=== PATIENT | female | born 1970 | race Caucasian/White ===

== ENCOUNTER 2017-02-17 19:15 | Emergency (ER) | payer OTHER ==
--- NOTE | 2017-02-17 19:40 | ERPHSYRPT ---
- History of Present Illness Time Seen by Provider: 02/17/17 19:27 Historian: patient Exam Limitations: no limitations Physician History: 46 y/o female with history of HTN and DM comes to the ER with complaints of substernal chest pain that started 4 days ago. About 2 weeks ago, patient was diagnosed with bronchitis and was treated with antibiotics and steroids. Pt says that she had a very severe cough. Pt describes the pain as tightness, constant, worse with inspiration, as high as a 9/10 with dizziness, shortness of breath and palpitations. Pt has never had a stress test in the past. Pt denies any fever, chills, but still has weakness and a productive cough. Pt does report having similar symptoms in the past and was diagnosed with pneumonia. Timing/Duration: day(s) (4 days) Activities at Onset: emotional stress Quality: tightness Location: substernal Chest Pain Radiation: no radiation Severity of Pain-Max: severe Severity of Pain-Current: severe Modifying Factors: Improves With: nothing Associated Symptoms: palpitations, shortness of breath, weakness, dizziness Prior Chest Pain/Cardiac Workup: no prior chest pain Nitro Today/Relief: no nitro taken today Aspirin Treatment Today: no aspirin today Allergies/Adverse Reactions: No Known Drug Allergies Allergy (Unverified 02/17/17 19:48) Home Medications: Hydrochlorothiazide 12.5 mg PO DAILY 02/17/17 [History] Lisinopril [Zestril] 10 mg PO DAILY 02/17/17 [History] Metformin HCl [Metformin HCl ER] 750 mg PO BID 02/17/17 [History] Sertraline HCl [Zoloft] 50 mg PO DAILY 02/17/17 [History] - Review of Systems Constitutional: No Fever, No Chills Eyes: No Symptoms Ears, Nose, & Throat: No Symptoms Respiratory: Cough, Dyspnea on Exertion (DYE), No Dyspnea Cardiac: Chest Pain, Palpitations, No Edema, No Syncope Abdominal/Gastrointestinal: No Abdominal Pain, No Nausea, No Vomiting, No Diarrhea Genitourinary Symptoms: No Dysuria Musculoskeletal: No Back Pain, No Neck Pain Skin: No Rash Neurological: Dizziness, No Focal Weakness, No Sensory Changes Psychological: No Symptoms Endocrine: No Symptoms All Other Systems: Reviewed and Negative - Nursing Vital Signs Nursing Vital Signs: Initial Vital Signs Respiratory Rate 22 02/17/17 19:29 Blood Pressure 155/99 02/17/17 19:29 O2 Sat by Pulse Oximetry 97 02/17/17 19:29 Pain Scale Pain Intensity 7 - Physical Exam General Appearance: no apparent distress, alert Eye Exam: PERRL/EOMI, eyes nml inspection Ears, Nose, Throat Exam: normal ENT inspection, moist mucous membranes Neck Exam: normal inspection, non-tender, supple, full range of motion Respiratory Exam: normal breath sounds, chest tenderness, lungs clear, No respiratory distress Cardiovascular Exam: regular rate/rhythm, normal heart sounds Gastrointestinal/Abdomen Exam: soft, normal bowel sounds, No tenderness, No mass Back Exam: normal inspection, No CVA tenderness, No vertebral tenderness Extremity Exam: normal inspection, normal range of motion Neurologic Exam: alert, oriented x 3, cooperative, normal mood/affect, sensation nml, No motor deficits Skin Exam: normal color, warm, dry - Course Nursing assessment & vital signs reviewed: Yes EKG Interpreted by Me: RATE, Sinus Tach (HR 117), NORMAL AXIS, NORMAL INTERVALS , NORMAL QRS Ordered Tests: Active Orders 24 hr Category Date Time Status It Program Manager STAT Care 02/17/17 19:44 Active EKG-ER Only STAT Care 02/17/17 19:43 Active IV Insertion STAT Care 02/17/17 19:43 Active CHEST 2 VIEWS (PA AND LAT) Stat Exams 02/17/17 19:43 Taken BLOOD CULTURE Stat Lab 02/17/17 20:00 Received CBC W DIFF Stat Lab 02/17/17 19:50 Completed CK-Creatinine Phosphokinase Stat Lab 02/17/17 19:50 Completed CMP Stat Lab 02/17/17 19:50 Completed D-DIMER QUANTITATION Stat Lab 02/17/17 19:50 Completed HCG QUALITATIVE,SERUM Stat Lab 02/17/17 19:50 Completed NT PRO BNP Stat Lab 02/17/17 19:50 Completed TROPONIN Q3H Lab 02/17/17 19:50 Completed TROPONIN Q3H Lab 02/17/17 22:45 Ordered TROPONIN Q3H Lab 02/18/17 01:45 Ordered TROPONIN Q3H Lab 02/18/17 04:45 Ordered TROPONIN Q3H Lab 02/18/17 07:45 Ordered Medication Summary Discontinued Medications Generic Name Dose Route Start Last Admin Trade Name Freq PRN Reason Stop Dose Admin Ketorolac Tromethamine 30 mg 02/17/17 19:44 02/17/17 19:58 Toradol 30 Mg Injection IV 02/17/17 19:45 30 mg STAT ONE Administration Ketorolac Tromethamine Confirm 02/17/17 19:56 Toradol 30 Mg Injection Administered 02/17/17 19:57 Dose 30 mg .ROUTE .STK-MED ONE Lab/Rad Data: Laboratory Result Diagrams 02/17/17 19:50 02/17/17 19:50 Laboratory Results 02/17/17 02/17/17 02/17/17 Range/Units 19:50 19:50 19:50 WBC (4.0-10.5) K/mm3 RBC (4.1-5.4) M/mm3 Hgb (12.0-16.0) gm/dl Hct (35-47) % MCV (78-100) fl MCH (26-32) pg MCHC (32-36) g/dl RDW (11.5-14.0) % Plt Count (150-450) K/mm3 MPV (6-9.5) fl Gran % (36.0-66.0) % Lymphocytes % (24.0-44.0) % Monocytes % (0.0-12.0) % Eosinophils % (0.00-5.0) % Basophils % (0.0-0.4) % Basophils # (0-0.4) D-Dimer 236 (0-500) ng/mL Sodium (136-145) mEq/L Potassium (3.5-5.1) mEq/L Chloride (98-107) mEq/L Carbon Dioxide (21-32) mEq/L Anion Gap (5-15) MEQ/L BUN (9-20) mg/dL Creatinine (0.55-1.30) mg/dl Estimated GFR ML/MIN Glucose (70-110) MG/DL Calcium (8.5-10.1) mg/dL Total Bilirubin (0.2-1.0) mg/dL AST (15-37) U/L ALT (12-78) U/L Alkaline Phosphatase (46-116) U/L Creatine Kinase (26-192) U/L Troponin I < 0.017 (0.000-0.056) ng/ml NT-Pro-B Natriuret Pep (0-125) pg/ml Serum Total Protein (6.4-8.2) gm/dL Albumin (3.4-5.0) g/dL Serum , Qual NEGATIVE (Negative) 02/17/17 02/17/17 Range/Units 19:50 19:50 WBC 13.9 H (4.0-10.5) K/mm3 RBC 4.81 (4.1-5.4) M/mm3 Hgb 14.3 (12.0-16.0) gm/dl Hct 43.4 (35-47) % MCV 90.2 (78-100) fl MCH 29.7 (26-32) pg MCHC 32.9 (32-36) g/dl RDW 14.6 H (11.5-14.0) % Plt Count 435 (150-450) K/mm3 MPV 11.4 H (6-9.5) fl Gran % 63.9 (36.0-66.0) % Lymphocytes % 29.4 (24.0-44.0) % Monocytes % 5.8 (0.0-12.0) % Eosinophils % 0.6 (0.00-5.0) % Basophils % 0.3 (0.0-0.4) % Basophils # 0.04 (0-0.4) D-Dimer (0-500) ng/mL Sodium 140 (136-145) mEq/L Potassium 3.8 (3.5-5.1) mEq/L Chloride 102 (98-107) mEq/L Carbon Dioxide 21.4 (21-32) mEq/L Anion Gap 20.5 H (5-15) MEQ/L BUN 22 H (9-20) mg/dL Creatinine 0.90 (0.55-1.30) mg/dl Estimated GFR > 60 ML/MIN Glucose 217 H (70-110) MG/DL Calcium 10.0 (8.5-10.1) mg/dL Total Bilirubin 0.30 (0.2-1.0) mg/dL AST 65 H (15-37) U/L ALT 111 H (12-78) U/L Alkaline Phosphatase 120 H (46-116) U/L Creatine Kinase 41 (26-192) U/L Troponin I (0.000-0.056) ng/ml NT-Pro-B Natriuret Pep 17 (0-125) pg/ml Serum Total Protein 8.2 (6.4-8.2) gm/dL Albumin 3.9 (3.4-5.0) g/dL Serum , Qual (Negative) - Progress Progress: unchanged Air Movement: good Progress Note: 02/17/17 21:18 Pt still having chest pain after receiving toradol. Pt will be given a dose of norco prior to being discharged. The cardiac workup, including, troponin an dEKG are within normal limits. D-dimer is unremarkable and the CXR does not show any infiltrate. Pt will be d/c home with a diagnosis of costochondritis and will be given a script for toradol and short course of norco. - Departure Time of Disposition: 21:20 Departure Disposition: Home Clinical Impression: Costochondritis Condition: Stable Critical Care Time: No Instructions: Costochondritis Additional Instructions: Follow up with your primary care doctor for any additional chest pain issues. Forms: Work/School Release Form Prescriptions: Hydrocodone Bit/Acetaminophen [Cromwell 5-325 Tablet] 1 each PO QID PRN #8 tablet PRN Reason: Severe Pain Ketorolac Tromethamine [Toradol] 10 mg PO QID PRN #15 tablet PRN Reason: Pain
[2017-02-17] MEDS ORDERED: TORAdol 30 mg Injection IV ONE (19:44)
[2017-02-17] MEDS ORDERED: TORAdol 30 mg Injection ONE (19:56)
[2017-02-17 20:12] LABS: BASOPHIL % 0.3 % (0.0-0.4); Eosinophil % 0.6 % (0.00-5.0); Granulocytes % 63.9 % (36.0-66.0); Lymphocytes % 29.4 % (24.0-44.0); Mean Cell Volume 90.2 fl (78-100); Mean Corpuscular Hemoglobin 29.7 pg (26-32); Mean Platelet Volume 11.4 fl (6-9.5); Monocytes % 5.8 % (0.0-12.0); Platelet Count 435 K/mm3 (150-450); Red Blood Count 4.81 M/mm3 (4.1-5.4); Red Cell Distribution Width 14.6 % (11.5-14.0); White Blood Count 13.9 K/mm3 (4.0-10.5)
[2017-02-17 21:01] LABS: ALBUMIN 3.9 g/dL (3.4-5.0); ALKALINE PHOSPHATASE 120 U/L (46-116); ANION GAP 20.5 MEQ/L (5-15); BLOOD UREA NITROGEN 22 mg/dL (9-20); CHLORIDE 102 mEq/L (98-107); Carbon Dioxide 21.4 mEq/L (21-32); Glucose 217 MG/DL (70-110); Potassium 3.8 mEq/L (3.5-5.1); SGOT/AST 65 U/L (15-37); SGPT/ALT 111 U/L (12-78); SODIUM 140 mEq/L (136-145); Total Protein 8.2 gm/dL (6.4-8.2)
[2017-02-17] MEDS ORDERED: NORCO 5/325 MG PO ONE (21:17)
[2017-02-17] MEDS ORDERED: NORCO 5/325 MG ONE (21:22)
[2017-02-17 21:58] VITALS: BP 130/70; PULSE 88; O2SAT 98
--- NOTE | 2017-02-18 11:06 | XRAY ---
Exam: Two-view chest from 02/17/2017. Comparison: Two-view chest from 02/19/2007. Indication: Weakness, chest pain, shortness of breath, high blood pressure 4 days, no history of prior surgery. Findings: PA and lateral upright chest films were obtained. The heart size and contour are normal. Inflation of the lungs is average. The patrice and mediastinal structures appear unremarkable. EKG leads are noted in place. The lungs reveal no air space infiltrates, vascular congestion, pneumothorax, or pleural effusion. Prior minimal air space infiltrate within the right midlung field on 02/19/2007 is no longer seen. Small anterior osteophytes are seen within the lower thoracic spine. Incidentally, there are multiple tiny sclerotic lesions within both shoulder girdles. In retrospect, this is unchanged from 02/19/2007 as well as on a CT of the abdomen and pelvis, the latter which was grossly abnormal within the pelvis, on 01/29/2009. 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 It is a rare inherited benign condition. It is inherited as an autosomal dominant disorder. The condition is asymptomatic and does not degenerate into malignancy. Bone strength is normal. Impression: 1. No infiltrates, pleural effusion, or other acute cardiopulmonary disease is seen. 2. Osteopoikilosis. See above.
== END 2017-02-17 21:48 | disposition home or self-care (01) ==
LOC: ED 19:15
DX: M94.0 Chondrocostal junction syndrome [Tietze] (principal); R07.89 Other chest pain; R00.2 Palpitations; R42 Dizziness and giddiness; I10 Essential (primary) hypertension; E11.9 Type 2 diabetes mellitus without complications; Z79.84 Long term (current) use of oral hypoglycemic drugs; Z79.899 Other long term (current) drug therapy
CPT/HCPCS: 36000; 36415; 71020; 80053; 82550; 83880; 84484; 84703; 85025; 85379; 87040; 93005; 93041; 96374; 99283; J1885; A9270-GY

== ENCOUNTER 2017-02-19 08:06 | Emergency (ER) | payer OTHER ==
[2017-02-19] MEDS ORDERED: Nitrostat 0.4 MG (ED) SL ONE ×2 (08:25→08:36)
[2017-02-19] MEDS ORDERED: PROTONIX 40 MG IV IV ONE ×2 (08:28→08:36)
--- NOTE | 2017-02-19 08:38 | ERPHSYRPT ---
- History of Present Illness Time Seen by Provider: 02/19/17 08:11 Historian: patient Exam Limitations: no limitations (left mild chest pain tightness off and on since seen here on Thursday nonrad, pt took asa today, no fever, no NV, no hx stress testing, +fam hx CAD, mother cabg at 65yo) Patient Subjective Stated Complaint: pt here for pressure to left side of chest , nonradiating, no sob, no nuasea,fever,cough, was seen thursday for same thing, and sent home on pain meds Triage Nursing Assessment: pt walked in alert, resp easy, chest clear, skin w/d pink ,no edema noted, moves all ext well, Physician History: recoreded in pt subjective complaint Timing/Duration: day(s) Activities at Onset: none Quality: tightness Location: substernal Chest Pain Radiation: no radiation Severity of Pain-Max: mild Severity of Pain-Current: mild Modifying Factors: Improves With: nothing Associated Symptoms: No vomiting Prior Chest Pain/Cardiac Workup: no prior cardiac workup Aspirin Treatment Today: provided at home Allergies/Adverse Reactions: No Known Drug Allergies Allergy (Verified 02/19/17 08:19) Home Medications: Hydrochlorothiazide 12.5 mg PO DAILY 02/17/17 [History] Lisinopril [Zestril] 10 mg PO DAILY 02/17/17 [History] Metformin HCl [Metformin HCl ER] 750 mg PO BID 02/17/17 [History] Sertraline HCl [Zoloft] 50 mg PO DAILY 02/17/17 [History] Aspirin 81 gm Chew [Baby Aspirin 81 mg Chew] 81 mg DAILY 02/19/17 [History ] Lactobacillus Acidophilus [Acidophilus Lactobacilli] 1 ea DAILY 02/19/17 [ History] Loratadine 10 mg [Claritin 10 mg] 10 mg DAILY 02/19/17 [History] Omeprazole 20 MG [Prilosec 20 mg] 20 mg DAILY 02/19/17 [History] Pravastatin Sodium [Pravachol] 10 mg DAILY 02/19/17 [History] Sumatriptan Succinate [Imitrex] 50 mg .ROUTE PRN 02/19/17 [History] Vitamin E 400 Units [Vitamin E 400 UNIT SOFTGEL] 400 units DAILY 02/19/17 [History] Hx Tetanus, Diphtheria Vaccination/Date Given: Yes Hx Influenza Vaccination/Date Given: Yes Hx Pneumococcal Vaccination/Date Given: No Immunizations Up to Date: Yes - Review of Systems Constitutional: No Fever Eyes: No Symptoms Ears, Nose, & Throat: No Symptoms Respiratory: Dyspnea Cardiac: Chest Pain Abdominal/Gastrointestinal: No Symptoms Musculoskeletal: No Symptoms Skin: No Symptoms Neurological: Dizziness Psychological: No Symptoms - Past Medical History Pertinent Past Medical History: Yes Cardiac History: No Pertinent History, Hypertension Respiratory History: Bronchitis, Pneumonia Endocrine Medical History: Diabetes Type II Musculoskeletal History: No Pertinent History GI Medical History: GERD, Irritable Bowel, Polyps Psycho-Social History: No Pertinent History Female Reproductive Disorders: No Pertinent History - Past Surgical History Past Surgical History: Yes Gastrointestinal: Appendectomy, Cholecystectomy Female Surgical History: Hysterectomy - Social History Smoking Status: Never smoker Exposure to second hand smoke: No Drug Use: none Patient Lives Alone: No - Female History Hx Last Menstrual Period: hyster - Nursing Vital Signs Nursing Vital Signs: Initial Vital Signs Temperature 97.7 F 02/19/17 08:13 Pulse Rate 78 02/19/17 08:13 Respiratory Rate 16 02/19/17 08:13 Blood Pressure 134/88 02/19/17 08:13 O2 Sat by Pulse Oximetry 98 02/19/17 08:13 Pain Scale Pain Intensity 3 - Physical Exam General Appearance: no apparent distress Eye Exam: PERRL/EOMI Ears, Nose, Throat Exam: normal ENT inspection Neck Exam: normal inspection Respiratory Exam: normal breath sounds Cardiovascular Exam: regular rate/rhythm Gastrointestinal/Abdomen Exam: soft, No tenderness Extremity Exam: normal inspection Neurologic Exam: alert, oriented x 3, cooperative, normal mood/affect Skin Exam: normal color, warm, dry SpO2 Interpretation: normal SpO2: 98 Oxygen Delivery: Room Air - Course EKG Interpreted by Me: RATE (76), Sinus Rhythm, Other (no stemi) - Radiology Exams Chest X-ray Interpretation: Discussed w/ radiologist (no acute process) Ordered Tests: Active Orders 24 hr Category Date Time Status EKG-ER Only STAT Care 02/19/17 08:25 Active IV Insertion STAT Care 02/19/17 08:25 Active CHEST 1 VIEW (PORTABLE) Stat Exams 02/19/17 08:26 Completed CBC W DIFF Stat Lab 02/19/17 08:45 Completed CK-Creatinine Phosphokinase Routine Lab 02/19/17 08:30 Completed CMP Routine Lab 02/19/17 08:30 Completed D-DIMER QUANTITATION Stat Lab 02/19/17 08:45 Completed TROPONIN Q3H Lab 02/19/17 08:30 Completed TROPONIN Q3H Lab 02/19/17 11:30 Completed TROPONIN Q3H Lab 02/19/17 14:30 Ordered TROPONIN Q3H Lab 02/19/17 17:30 Ordered TROPONIN Q3H Lab 02/19/17 20:30 Ordered Medication Summary Discontinued Medications Generic Name Dose Route Start Last Admin Trade Name Eddie PRN Reason Stop Dose Admin Ketorolac Tromethamine 30 mg 02/19/17 09:49 02/19/17 09:52 Toradol 30 Mg Injection IV 02/19/17 09:50 30 mg STAT ONE Administration Ketorolac Tromethamine Confirm 02/19/17 09:52 Toradol 30 Mg Injection Administered 02/19/17 09:53 Dose 30 mg .ROUTE .STK-MED ONE Morphine Sulfate 2 mg 02/19/17 09:12 02/19/17 09:17 Morphine Sulfate 2 Mg Inj IV 02/19/17 09:13 2 mg STAT ONE Administration Morphine Sulfate Confirm 02/19/17 09:16 Morphine Sulfate 2 Mg Inj Administered 02/19/17 09:17 Dose 2 mg .ROUTE .STK-MED ONE Nitroglycerin 0.4 mg 02/19/17 08:25 02/19/17 08:37 Nitrostat 0.4 Mg (Ed) SL 02/19/17 08:26 0.4 mg STAT ONE Administration Nitroglycerin Confirm 02/19/17 08:36 Nitrostat 0.4 Mg (Ed) Administered 02/19/17 08:37 Dose 0.4 mg SL .STK-MED ONE Pantoprazole Sodium 40 mg 02/19/17 08:28 02/19/17 08:37 Protonix 40 Mg Iv IV 02/19/17 08:29 40 mg STAT ONE Administration Pantoprazole Sodium Confirm 02/19/17 08:36 Protonix 40 Mg Iv Administered 02/19/17 08:37 Dose 40 mg IV .STK-MED ONE Lab/Rad Data: Laboratory Result Diagrams 02/19/17 08:45 02/19/17 08:30 Laboratory Results 02/19/17 02/19/17 02/19/17 Range/Units 11:30 08:45 08:45 WBC 12.8 H (4.0-10.5) K/mm3 RBC 4.66 (4.1-5.4) M/mm3 Hgb 13.7 (12.0-16.0) gm/dl Hct 42.7 (35-47) % MCV 91.6 (78-100) fl MCH 29.4 (26-32) pg MCHC 32.1 (32-36) g/dl RDW 14.5 H (11.5-14.0) % Plt Count 385 (150-450) K/mm3 MPV 11.4 H (6-9.5) fl Gran % 64.7 (36.0-66.0) % Lymphocytes % 27.3 (24.0-44.0) % Monocytes % 6.9 (0.0-12.0) % Eosinophils % 0.9 (0.00-5.0) % Basophils % 0.2 (0.0-0.4) % Basophils # 0.02 (0-0.4) D-Dimer < 250 (0-500) ng/mL Sodium (136-145) mEq/L Potassium (3.5-5.1) mEq/L Chloride (98-107) mEq/L Carbon Dioxide (21-32) mEq/L Anion Gap (5-15) MEQ/L BUN (9-20) mg/dL Creatinine (0.55-1.30) mg/dl Estimated GFR ML/MIN Glucose (70-110) MG/DL Calcium (8.5-10.1) mg/dL Total Bilirubin (0.2-1.0) mg/dL AST (15-37) U/L ALT (12-78) U/L Alkaline Phosphatase (46-116) U/L Creatine Kinase (26-192) U/L Troponin I < 0.017 (0.000-0.056) ng/ml Serum Total Protein (6.4-8.2) gm/dL Albumin (3.4-5.0) g/dL 02/19/17 Range/Units 08:30 WBC (4.0-10.5) K/mm3 RBC (4.1-5.4) M/mm3 Hgb (12.0-16.0) gm/dl Hct (35-47) % MCV (78-100) fl MCH (26-32) pg MCHC (32-36) g/dl RDW (11.5-14.0) % Plt Count (150-450) K/mm3 MPV (6-9.5) fl Gran % (36.0-66.0) % Lymphocytes % (24.0-44.0) % Monocytes % (0.0-12.0) % Eosinophils % (0.00-5.0) % Basophils % (0.0-0.4) % Basophils # (0-0.4) D-Dimer (0-500) ng/mL Sodium 139 (136-145) mEq/L Potassium 4.2 (3.5-5.1) mEq/L Chloride 101 (98-107) mEq/L Carbon Dioxide 28.4 (21-32) mEq/L Anion Gap 13.3 (5-15) MEQ/L BUN 16 (9-20) mg/dL Creatinine 0.75 (0.55-1.30) mg/dl Estimated GFR > 60 ML/MIN Glucose 137 H (70-110) MG/DL Calcium 9.4 (8.5-10.1) mg/dL Total Bilirubin 0.30 (0.2-1.0) mg/dL AST 95 H (15-37) U/L ALT 124 H (12-78) U/L Alkaline Phosphatase 103 (46-116) U/L Creatine Kinase 45 (26-192) U/L Troponin I < 0.017 (0.000-0.056) ng/ml Serum Total Protein 7.8 (6.4-8.2) gm/dL Albumin 3.7 (3.4-5.0) g/dL - Progress Progress: improved Air Movement: good Progress Note: 02/19/17 12:43 pt unimproved w/ SL NTG, in fact, it made her feel worse. protonix had no reported effect. pt improved w/ toradol. differential d/w pt as bronchitis, pleurisy, gerd Discussed with Dr.: Other (Dr Preciado) Counseled pt/family regarding: lab results, diagnosis, need for follow-up, rad results (script for zpak rendered, pt will return if worse, pt will fill the script for toradol and norco as previously rendered) - Departure Time of Disposition: 12:45 Departure Disposition: Home Clinical Impression: Chest wall discomfort Condition: Stable Critical Care Time: No Referrals: DOCTOR,NO FAMILY [NON-STAFF PHY W/O PRIVILEGES] -
[2017-02-19 08:51] LABS: BASOPHIL % 0.2 % (0.0-0.4); Eosinophil % 0.9 % (0.00-5.0); Granulocytes % 64.7 % (36.0-66.0); Lymphocytes % 27.3 % (24.0-44.0); Mean Cell Volume 91.6 fl (78-100); Mean Corpuscular Hemoglobin 29.4 pg (26-32); Mean Platelet Volume 11.4 fl (6-9.5); Monocytes % 6.9 % (0.0-12.0); Platelet Count 385 K/mm3 (150-450); Red Blood Count 4.66 M/mm3 (4.1-5.4); Red Cell Distribution Width 14.5 % (11.5-14.0); White Blood Count 12.8 K/mm3 (4.0-10.5)
[2017-02-19] MEDS ORDERED: MORPHINE SULFATE 2 MG INJ IV ONE (09:12)
[2017-02-19] MEDS ORDERED: MORPHINE SULFATE 2 MG INJ ONE (09:16)
--- NOTE | 2017-02-19 09:20 | XRAY ---
Exam: AP upright portable chest film from 02/19/2017. Comparison: PA and lateral chest films from 02/17/2017. Indication: Chest pain. Findings: The exam was obtained in a lordotic projection. The level of inspiration is mildly decreased which slightly accentuates the heart. I believe the heart size is within normal limits for this AP portable technique and the level of inspiration. It is unchanged from 02/17/2017. No central vascular congestion, Jojo B lines, or pleural fluid is seen. No air space infiltrates or other parenchymal lung abnormalities are seen. There is no pneumothorax. I again see some small sclerotic densities within both shoulder girdles. 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 Impression: 1. Mildly hypoinflated chest. No acute cardiopulmonary disease is seen. 2. 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
[2017-02-19 09:22] LABS: ALBUMIN 3.7 g/dL (3.4-5.0); ALKALINE PHOSPHATASE 103 U/L (46-116); ANION GAP 13.3 MEQ/L (5-15); BLOOD UREA NITROGEN 16 mg/dL (9-20); CHLORIDE 101 mEq/L (98-107); Carbon Dioxide 28.4 mEq/L (21-32); Glucose 137 MG/DL (70-110); Potassium 4.2 mEq/L (3.5-5.1); SGOT/AST 95 U/L (15-37); SGPT/ALT 124 U/L (12-78); SODIUM 139 mEq/L (136-145); Total Protein 7.8 gm/dL (6.4-8.2)
[2017-02-19 09:24] LABS: TROPONIN < 0.017 ng/ml (0.000-0.056)
[2017-02-19] MEDS ORDERED: TORAdol 30 mg Injection IV ONE (09:49)
[2017-02-19] MEDS ORDERED: TORAdol 30 mg Injection ONE (09:52)
[2017-02-19 13:08] VITALS: BP 111/94; PULSE 73; O2SAT 99
== END 2017-02-19 13:09 | disposition home or self-care (01) ==
LOC: ED 08:06
DX: R07.89 Other chest pain (principal); Z79.899 Other long term (current) drug therapy; I10 Essential (primary) hypertension; E11.9 Type 2 diabetes mellitus without complications
CPT/HCPCS: 36000; 36415; 71010; 80053; 82550; 84484; 85025; 85379; 93005; 96374; 99284; J1885; J2270; A9270-GY

== ENCOUNTER 2017-03-07 19:25 | Observation (INO) | payer OTHER ==
[2017-03-07] MEDS ORDERED: DUONEB 0.5-3 MG/3 ml Neb IH ONE ×2 (19:50→20:00)
[2017-03-07] MEDS ORDERED: Sodium Chloride 0.9% 1000 ML 1,000 ML IV STA (19:50)
[2017-03-07] MEDS ORDERED: Sodium Chloride 0.9% 1000 ML 1,000 ML ONE ×2 (19:53→20:51)
--- NOTE | 2017-03-07 19:55 | ERPHSYRPT ---
- History of Present Illness Time Seen by Provider: 03/07/17 19:46 Source: patient Exam Limitations: no limitations Patient Subjective Stated Complaint: Pt sts shortness of breath x 2 worsening in nature tonight. Feels like her airway is tight and it is hard to breathe. Denies hx of lung problems. Cold symptoms with runny nose and productive cough today. Feels like she has had a fever. Triage Nursing Assessment: Pt alert, oriented, answers all questions appropriately. Pt speaks in 4-5 word bursts. Audible wheezing noted however lung sounds clear all [place]. Dry cough noted. SPO2 99% room air. Physician History: 46-year-old white female with history of blood pressure bronchitis pneumonia diabetes Patient arrives with complaint of shortness of breath 2 days states she's had a fever at home no vomiting no chest pain Past medical history includes high blood pressure, bronchitis, pneumonia, diabetes type 2, GERD, irritable bowel, polyps Past surgical history includes appendectomy, cholecystectomy, hysterectomy Social history patient denies tobacco alcohol or illicit drug use Timing/Duration: day(s) Severity: moderate Modifying Factors: Improves With: nothing Associated Symptoms: shortness of breath, fever, No nausea, No vomiting, No abdominal pain, No diaphoresis, No cough, No chills, No chest pain, No headaches , No loss of appetite, No malaise, No rash, No syncope, No seizure, No weakness Allergies/Adverse Reactions: No Known Drug Allergies Allergy (Verified 03/07/17 19:36) Home Medications: Hydrochlorothiazide 12.5 mg PO DAILY 02/17/17 [History] Lisinopril [Zestril] 10 mg PO DAILY 02/17/17 [History] Metformin HCl [Metformin HCl ER] 750 mg PO BID 02/17/17 [History] Sertraline HCl [Zoloft] 50 mg PO DAILY 02/17/17 [History] Aspirin 81 gm Chew [Baby Aspirin 81 mg Chew] 81 mg DAILY 02/19/17 [History ] Lactobacillus Acidophilus [Acidophilus Lactobacilli] 1 ea DAILY 02/19/17 [ History] Loratadine 10 mg [Claritin 10 mg] 10 mg DAILY 02/19/17 [History] Omeprazole 20 MG [Prilosec 20 mg] 20 mg DAILY 02/19/17 [History] Pravastatin Sodium [Pravachol] 10 mg DAILY 02/19/17 [History] Sumatriptan Succinate [Imitrex] 50 mg .ROUTE PRN 02/19/17 [History] Vitamin E 400 Units [Vitamin E 400 UNIT SOFTGEL] 400 units DAILY 02/19/17 [History] Cetirizine HCl [Zyrtec] 10 mg PO DAILY 03/07/17 [History] Hx Tetanus, Diphtheria Vaccination/Date Given: Yes Hx Influenza Vaccination/Date Given: Yes Hx Pneumococcal Vaccination/Date Given: No Immunizations Up to Date: Yes - Review of Systems Constitutional: Fever, No Chills, No Fatigue, No Lethargy, No Malaise, No Night Sweats, No Weakness, No Weight Loss, No Other Eyes: No Symptoms, No Discharge, No Eye Pain, No Eye Redness, No Itchy, No Photophobia, No Tearing, No Vision Changes, No Double Vision, No Foreign Body Sensation Ears, Nose, & Throat: No Symptoms, No Ear Pain, No Ear Discharge, No Hearing Changes, No Tinnitus, No Nose Pain, No Nose Congestion, No Nose Discharge, No Sinus Drainage, No Epistaxis, No Mouth Pain, No Mouth Swelling, No Loose Teeth, No Throat Pain, No Throat Swelling, No Hoarse, No Painful Swallowing, No Snoring , No Stridor Respiratory: Cough, Dyspnea, Wheezing, No Cyanosis, No Dyspnea on Exertion (DYE) , No Stridor Cardiac: No Chest Pain, No Edema, No Syncope Abdominal/Gastrointestinal: No Abdominal Pain, No Nausea, No Vomiting, No Diarrhea Genitourinary Symptoms: No Dysuria Musculoskeletal: No Back Pain, No Neck Pain Skin: No Rash Neurological: No Dizziness, No Focal Weakness, No Sensory Changes Psychological: No Symptoms Endocrine: No Symptoms All Other Systems: Reviewed and Negative - Past Medical History Pertinent Past Medical History: Yes Cardiac History: No Pertinent History, Hypertension Respiratory History: Bronchitis, Pneumonia Endocrine Medical History: Diabetes Type II Musculoskeletal History: No Pertinent History GI Medical History: GERD, Irritable Bowel, Polyps Psycho-Social History: No Pertinent History Female Reproductive Disorders: No Pertinent History - Past Surgical History Past Surgical History: Yes Gastrointestinal: Appendectomy, Cholecystectomy Female Surgical History: Hysterectomy - Social History Smoking Status: Never smoker Exposure to second hand smoke: No Drug Use: none Patient Lives Alone: No - Female History Hx Last Menstrual Period: hyst - Nursing Vital Signs Nursing Vital Signs: Initial Vital Signs Temperature 97.5 F 03/07/17 19:31 Pulse Rate 92 H 03/07/17 19:31 Respiratory Rate 24 03/07/17 19:31 Blood Pressure 124/69 03/07/17 19:31 O2 Sat by Pulse Oximetry 99 03/07/17 19:31 Pain Scale Pain Intensity 0 - Physical Exam General Appearance: no apparent distress, alert Eye Exam: PERRL/EOMI, eyes nml inspection Ears, Nose, Throat Exam: normal ENT inspection, TMs normal, pharynx normal, moist mucous membranes Neck Exam: normal inspection, non-tender, supple, full range of motion Respiratory Exam: normal breath sounds, lungs clear, No respiratory distress Cardiovascular Exam: regular rate/rhythm, normal heart sounds, normal peripheral pulses Gastrointestinal/Abdomen Exam: soft, normal bowel sounds, No tenderness, No mass Back Exam: normal inspection, normal range of motion, No CVA tenderness, No vertebral tenderness Extremity Exam: normal inspection, normal range of motion, pelvis stable Neurologic Exam: alert, oriented x 3, cooperative, normal mood/affect, nml cerebellar function, nml station & gait, sensation nml, No motor deficits Skin Exam: normal color, warm, dry, No rash SpO2 Interpretation: normal (99%) SpO2: 99 Oxygen Delivery: Room Air - Course Nursing assessment & vital signs reviewed: Yes EKG Interpreted by Me: RATE (90 bpm), Sinus Rhythm, NORMAL AXIS, Other (EKG: Normal sinus rhythm 90 beats per minute, normal axis, no acute ST or T wave changes noted) Ordered Tests: Active Orders 24 hr Category Date Time Status Accucheck STAT Care 03/07/17 20:23 Active Catapult And Arresting Gear Officer STAT Care 03/07/17 19:49 Active Clean Catch Urine Specimen STAT Care 03/07/17 19:49 Active EKG-ER Only STAT Care 03/07/17 19:50 Active IV Insertion STAT Care 03/07/17 19:50 Active Pulse Oximetry (ED) STAT Care 03/07/17 19:49 Active Saline Lock STAT Care 03/07/17 19:49 Active CHEST 1 VIEW (PORTABLE) Stat Exams 03/07/17 19:49 Taken BLOOD CULTURE Stat Lab 03/07/17 20:15 Received CBC W DIFF Stat Lab 03/07/17 19:40 Completed CMP Stat Lab 03/07/17 19:40 Completed CULTURE, THROAT Stat Lab 03/07/17 20:45 Received CULTURE,SPUTUM Stat Lab 03/07/17 20:27 Uncollected CULTURE,URINE Stat Lab 03/07/17 20:15 Received Lactic Acid Stat Lab 03/07/17 20:19 Results PROTIME WITH INR Stat Lab 03/07/17 19:40 Completed PTT Stat Lab 03/07/17 19:40 Completed STREP SCREEN-BETA A Stat Lab 03/07/17 20:45 Completed UA Stat Lab 03/07/17 20:15 Completed VENOUS BLOOD GAS Stat Lab 03/07/17 20:23 Ordered Respiratory Nebulizer STAT RT 03/07/17 19:51 Active Medication Summary Generic Name Dose Route Start Last Admin Trade Name Freq PRN Reason Stop Dose Admin Sodium Chloride 1,000 mls @ 999 mls/hr 03/07/17 20:30 03/07/17 20:53 Sodium Chloride 0.9% 1000 Ml IV 03/07/17 23:30 999 mls/hr .Q1H1M YOVANY Administration Discontinued Medications Generic Name Dose Route Start Last Admin Trade Name Freq PRN Reason Stop Dose Admin Albuterol/Ipratropium 3 ml 03/07/17 19:50 03/07/17 20:02 Duoneb 0.5-3 Mg/3 Ml Neb IH 03/07/17 19:51 3 ml STAT ONE Administration Albuterol/Ipratropium Confirm 03/07/17 20:00 Duoneb 0.5-3 Mg/3 Ml Neb Administered 03/07/17 20:01 Dose 3 ml IH .STK-MED ONE Sodium Chloride 1,000 mls @ 999 mls/hr 03/07/17 19:50 03/07/17 19:55 Sodium Chloride 0.9% 1000 Ml IV 03/07/17 20:50 999 mls/hr .Q1H1M STA Administration Sodium Chloride Confirm 03/07/17 19:53 Sodium Chloride 0.9% 1000 Ml Administered 03/07/17 19:54 Dose 1,000 mls @ ud .ROUTE .STK-MED ONE Ceftriaxone Sodium/Dextrose 1 g in 50 mls @ 100 mls/hr 03/07/17 20:23 20:29 Rocephin 1 Gm-D5w 50 Ml Bag IV 03/07/17 20:52 100 mls/hr STAT STA Administration Ceftriaxone Sodium/Dextrose Confirm 03/07/17 20:26 Rocephin 1 Gm-D5w 50 Ml Bag Administered 03/07/17 20:27 Dose 1 g in 50 mls @ ud IV .STK-MED ONE Lab/Rad Data: Laboratory Result Diagrams 03/07/17 19:40 03/07/17 19:40 Laboratory Results 03/07/17 03/07/17 03/07/17 Range/Units 20:45 20:19 20:15 WBC (4.0-10.5) K/mm3 RBC (4.1-5.4) M/mm3 Hgb (12.0-16.0) gm/dl Hct (35-47) % MCV (78-100) fl MCH (26-32) pg MCHC (32-36) g/dl RDW (11.5-14.0) % Plt Count (150-450) K/mm3 MPV (6-9.5) fl Gran % (36.0-66.0) % Lymphocytes % (24.0-44.0) % Monocytes % (0.0-12.0) % Eosinophils % (0.00-5.0) % Basophils % (0.0-0.4) % Basophils # (0-0.4) INR (0.8-3.0) APTT (25.3-37.0) SECONDS Sodium (136-145) mEq/L Potassium (3.5-5.1) mEq/L Chloride (98-107) mEq/L Carbon Dioxide (21-32) mEq/L Anion Gap (5-15) MEQ/L BUN (9-20) mg/dL Creatinine (0.55-1.30) mg/dl Estimated GFR ML/MIN Glucose (70-110) MG/DL Lactic Acid 2.5 H (0.4-2.0) Calcium (8.5-10.1) mg/dL Total Bilirubin (0.2-1.0) mg/dL AST (15-37) U/L ALT (12-78) U/L Alkaline Phosphatase (46-116) U/L Serum Total Protein (6.4-8.2) gm/dL Albumin (3.4-5.0) g/dL Ur Collection Type CLEAN CATCH Urine Color YELLOW (YELLOW) Urine Appearance SLIGHTLY CLOUDY (CLEAR) Urine pH 5.0 (5-6) Ur Specific [place] 1.020 (1.005-1.025) Urine Protein NEGATIVE (Negative) Urine Ketones NEGATIVE (NEGATIVE) Urine Blood NEGATIVE (0-5) Pat[place]/ul Urine Nitrite NEGATIVE (NEGATIVE) Urine Bilirubin NEGATIVE (NEGATIVE) Urine Urobilinogen NORMAL (0-1) mg/dL Ur Leukocyte Esterase NEGATIVE (NEGATIVE) Urine Glucose 1000 (NEGATIVE) mg/dL Streptococcus Screen NEGATIVE (Negative) Specimen Received 03/07/17201403/07/17 03/07/17 03/07/17 Range/Units 19:40 19:40 19:40 WBC 7.9 (4.0-10.5) K/mm3 RBC 3.93 L (4.1-5.4) M/mm3 Hgb 11.8 L (12.0-16.0) gm/dl Hct 36.4 (35-47) % MCV 92.6 (78-100) fl MCH 30.0 (26-32) pg MCHC 32.4 (32-36) g/dl RDW 14.7 H (11.5-14.0) % Plt Count 289 (150-450) K/mm3 MPV 11.1 H (6-9.5) fl Gran % 62.1 (36.0-66.0) % Lymphocytes % 31.0 (24.0-44.0) % Monocytes % 5.7 (0.0-12.0) % Eosinophils % 1.1 (0.00-5.0) % Basophils % 0.1 (0.0-0.4) % Basophils # 0.01 (0-0.4) INR 0.95 (0.8-3.0) APTT 29.4 (25.3-37.0) SECONDS Sodium 140 (136-145) mEq/L Potassium 3.2 L (3.5-5.1) mEq/L Chloride 106 (98-107) mEq/L Carbon Dioxide 22.3 (21-32) mEq/L Anion Gap 14.8 (5-15) MEQ/L BUN 14 (9-20) mg/dL Creatinine 0.78 (0.55-1.30) mg/dl Estimated GFR > 60 ML/MIN Glucose 248 H (70-110) MG/DL Lactic Acid (0.4-2.0) Calcium 8.4 L (8.5-10.1) mg/dL Total Bilirubin 0.20 (0.2-1.0) mg/dL AST 39 H (15-37) U/L ALT 94 H (12-78) U/L Alkaline Phosphatase 121 H (46-116) U/L Serum Total Protein 7.1 (6.4-8.2) gm/dL Albumin 3.4 (3.4-5.0) g/dL Ur Collection Type Urine Color (YELLOW) Urine Appearance (CLEAR) Urine pH (5-6) Ur Specific [place] (1.005-1.025) Urine Protein (Negative) Urine Ketones (NEGATIVE) Urine Blood (0-5) Pato/ul Urine Nitrite (NEGATIVE) Urine Bilirubin (NEGATIVE) Urine Urobilinogen (0-1) mg/dL Ur Leukocyte Esterase (NEGATIVE) Urine Glucose (NEGATIVE) mg/dL Streptococcus Screen (Negative) Specimen Received - Progress Progress: improved Progress Note: 03/07/17 19:54 This is a 46-year-old white female arrives with complaint of shortness of breath fever symptoms for 2 days. Patient apparently is afebrile at this time in hazardous oxygen saturation of 99 % however's she apparently tripped sepsis protocol. On physical examination patient has some slight wheezes with a deep breathing sounds more upper airway than anything else however patient states she feels like she is wheezing. Will go ahead and obtain sepsis protocol labs begin IV normal saline order DuoNeb treatment. 03/07/17 20:28 This is a 46-year-old white female history of high blood pressure bronchitis pneumonia diabetes type 2 GERD irritable bowel She arrives with complaints of shortness of breath complaint fever for 2 days she has some slight wheezing. She is really afebrile on arrival. Patient apparently did trip sepsis screen secondary to fever at home and shortness of breath. Patient with normal vitals at this time oxygen saturation 99% blood pressure 124 /69. Patient with a lactate of 2.5. Have ordered a total of 4 L of normal saline Rocephin blood cultures. Labs per sepsis protocol. 03/07/17 21:26 Patient is rechecked. Patient was the good peripheral perfusion. Lungs are clear. Heart rate 87 bpm O2 sat 100% blood pressure 109/54. I discussed case with Dr. Storey. Will admit patient for bronchitis, bronchospasm, sepsis due to the elevated lactate at 2.5. Patient has received the prescribed IV fluids. She has received Rocephin. Appropriate cultures and labs have been ordered. Will place patient on telemetry continue duo neb treatments continue Rocephin begin Zithromax. Plan on repeat lactate 3 hours after last draw. - Departure Time of Disposition: 21:28 Departure Disposition: Observation Clinical Impression: Bronchitis, Bronchospasm Sepsis Qualifiers: Sepsis type: sepsis due to unspecified organism Qualified Code(s): A41.9 - Sepsis, unspecified organism Condition: Fair Critical Care Time: No Referrals: LORE NICOLE MD [Primary Care Provider] -
[2017-03-07 19:57] LABS: BASOPHIL % 0.1 % (0.0-0.4); Eosinophil % 1.1 % (0.00-5.0); Granulocytes % 62.1 % (36.0-66.0); Mean Cell Volume 92.6 fl (78-100); Mean Platelet Volume 11.1 fl (6-9.5); Monocytes % 5.7 % (0.0-12.0); Platelet Count 289 K/mm3 (150-450); Red Blood Count 3.93 M/mm3 (4.1-5.4); Red Cell Distribution Width 14.7 % (11.5-14.0); White Blood Count 7.9 K/mm3 (4.0-10.5)
[2017-03-07 20:16] LABS: ALBUMIN 3.4 g/dL (3.4-5.0); ALKALINE PHOSPHATASE 121 U/L (46-116); ANION GAP 14.8 MEQ/L (5-15); BLOOD UREA NITROGEN 14 mg/dL (9-20); CHLORIDE 106 mEq/L (98-107); Carbon Dioxide 22.3 mEq/L (21-32); Glucose 248 MG/DL (70-110); Potassium 3.2 mEq/L (3.5-5.1); SGOT/AST 39 U/L (15-37); SGPT/ALT 94 U/L (12-78); SODIUM 140 mEq/L (136-145); Total Protein 7.1 gm/dL (6.4-8.2)
[2017-03-07 20:19] LABS: INR 0.95 (0.8-3.0); PROTIME 10.6 SECONDS (9.95-12.35)
[2017-03-07 20:20] LABS: Lactic Acid 2.5 (0.4-2.0)
[2017-03-07 20:22] LABS: PTT 29.4 SECONDS (25.3-37.0)
[2017-03-07] MEDS ORDERED: ROCEPHIN 1 Gm-D5w 50 ml Bag** 1 G/50 ML IVPB IV STA (20:23)
[2017-03-07] MEDS ORDERED: ROCEPHIN 1 Gm-D5w 50 ml Bag** 1 G/50 ML IVPB IV ONE (20:26)
[2017-03-07 20:34] LABS: Bilirubin NEGATIVE (NEGATIVE); Blood NEGATIVE Ery/ul (0-5); COMPLETE URINE MICROSCOPIC? NO; Collection Type CLEAN CATCH; Glucose 1000 mg/dL (NEGATIVE); Leukocyte Esterase NEGATIVE (NEGATIVE)
[2017-03-07] MEDS: Sodium Chloride 0.9% 1000 ML 1,000 ML IV SCH ×3 (20:53→23:21)
[2017-03-07] MEDS ORDERED: Sodium Chloride 0.9% 1000 ML 2,000 ML ONE (21:35)
[2017-03-07] MEDS ORDERED: NovoLOG Insulin SQ PRN (22:26)
[2017-03-08] MEDS: Glucophage 500 MG PO SCH ×3 (00:07→16:54)
[2017-03-08] MEDS: DUONEB 0.5-3 MG/3 ml Neb IH PRN ×4 (00:27→20:01)
[2017-03-08] MEDS ORDERED: MOTRIN 400 MG PO PRN (03:01)
[2017-03-08 06:01] LABS: BASOPHIL % 0.1 % (0.0-0.4); Granulocytes % 64.9 % (36.0-66.0); Lymphocytes % 27.9 % (24.0-44.0); Mean Cell Volume 93.7 fl (78-100); Mean Platelet Volume 10.9 fl (6-9.5); Monocytes % 6.1 % (0.0-12.0); Platelet Count 248 K/mm3 (150-450); Red Blood Count 3.48 M/mm3 (4.1-5.4); Red Cell Distribution Width 14.9 % (11.5-14.0); White Blood Count 7.8 K/mm3 (4.0-10.5)
[2017-03-08 06:19] LABS: Mean Corpuscular Hemoglobin 29.5 pg (26-32)
[2017-03-08 06:26] LABS: ALBUMIN 2.7 g/dL (3.4-5.0); ALKALINE PHOSPHATASE 88 U/L (46-116); ANION GAP 11.8 MEQ/L (5-15); CHLORIDE 112 mEq/L (98-107); Carbon Dioxide 23.8 mEq/L (21-32); Glucose 158 MG/DL (70-110); Potassium 4.2 mEq/L (3.5-5.1); SGOT/AST 31 U/L (15-37); SGPT/ALT 72 U/L (12-78); SODIUM 143 mEq/L (136-145); Total Protein 5.9 gm/dL (6.4-8.2)
[2017-03-08 06:39] LABS: BLOOD UREA NITROGEN 10 mg/dL (9-20)
--- NOTE | 2017-03-08 07:21 | PCM.HP ---
History of Present Illness - Chief Complaint Chief Complaint: SHORTNESS OF BREATH for 1-2 days History of Present Illness: 46-year-old white female with history of blood pressure bronchitis pneumonia diabetes Patient arrives with complaint of shortness of breath 2 days states she's had a fever at home no vomiting no chest pain - Review of Systems Constitutional: Fever, Chills Eyes: No Symptoms Ears, Nose, & Throat: No Symptoms Respiratory: Cough, Short Of Breath, Wheezing Cardiac: No Chest Pain, No Edema, No Syncope Abdominal/Gastrointestinal: No Abdominal Pain, No Nausea, No Vomiting, No Diarrhea Genitourinary Symptoms: No Dysuria Musculoskeletal: No Back Pain, No Neck Pain Skin: No Rash Neurological: No Dizziness, No Focal Weakness, No Sensory Changes Psychological: No Symptoms Endocrine: No Symptoms Hematologic/Lymphatic: No Symptoms Immunological/Allergic: No Symptoms Medications & Allergies Home Medications: Home Medication List Hydrochlorothiazide 12.5 mg PO HS 02/17/17 [History Confirmed 03/07/17] Hydrocodone Bit/Acetaminophen [[place] 5-325 Tablet] 1 each PO QID PRN #8 tablet 02/17/17 [Rx Confirmed 03/07/17] Ketorolac Tromethamine [Toradol] 10 mg PO QID PRN #15 tablet 02/17/17 [Rx Confirmed 03/07/17] Lisinopril [Zestril] 10 mg PO DAILY 02/17/17 [History Confirmed 03/07/17] Metformin HCl [Metformin HCl ER] 750 mg PO BID 02/17/17 [History Confirmed 03/07] Sertraline HCl [Zoloft] 50 mg PO DAILY 02/17/17 [History Confirmed 03/07/17] Aspirin 81 gm Chew [Baby Aspirin 81 mg Chew] 81 mg DAILY 02/19/17 [ History Confirmed 03/07/17] Lactobacillus Acidophilus [Acidophilus Lactobacilli] 1 ea HS 02/19/17 [History Confirmed 03/07/17] Omeprazole 20 MG [Prilosec 20 mg] 20 mg DAILY 02/19/17 [History Confirmed ] Pravastatin Sodium [Pravachol] 10 mg HS 02/19/17 [History Confirmed 03/07/17] Sumatriptan Succinate [Imitrex] 50 mg PO Q4-6HPRN PRN 02/19/17 [History Confirmed 03/07/17] Cetirizine HCl [Zyrtec] 10 mg PO DAILY 03/07/17 [History Confirmed 03/07/17] Allergies/Adverse Reactions: Allergies Allergy/AdvReac Type Severity Reaction Status Date / Time No Known Drug Allergies Allergy Verified 03/07/17 19:36 - Past Medical History Past Medical History: Yes Neurological History: Migraines ENT History: No Pertinent History Cardiac History: Hypertension Respiratory History: Bronchitis, Pneumonia Endocrine Medical History: Diabetes Type II Musculoskelatal History: No Pertinent History GI Medical History: GERD, Irritable Bowel, Polyps History: No Pertinent History Pyscho-Social History: No Pertinent History Reproductive Disorders: No Pertinent History - Female History Hx Last Menstrual Period: hyst Are you now?: No - Past Surgical History Past Surgical History: Yes Neuro Surgical History: No Pertinent History Cardiac History: No Pertinent History Respiratory Surgery: No Pertinent History GI Surgical History: Appendectomy, Cholecystectomy Genitourinary Surgical Hx: No Pertinent History Musculskeletal Surgical Hx: No Pertinent History Female Surgical History: Hysterectomy - Social History Smoking Status: Never smoker Exposure to second hand smoke: No Alcohol: None Drug Use: none - Physical Exam Vital Signs: Vital Signs - 24 hr Temp Pulse Resp BP Pulse Ox 03/08/17 07:07 98 F 89 20 127/79 97 03/08/17 04:00 97.9 F 92 H 18 118/59 97 03/08/17 01:24 91 H 22 94 L 03/07/17 22:30 97.8 F 90 18 109/55 96 03/07/17 21:51 81 18 93/64 97 03/07/17 21:29 99 03/07/17 20:33 87 18 109/54 97 03/07/17 19:55 99 03/07/17 19:51 96 H 20 99 03/07/17 19:39 24 99 03/07/17 19:31 97.5 F 92 H 24 124/69 99 Oxygen-Last 24 hours O2 Percentage 2 Liters = 28% O2 Percentage 2 Liters = 28% General Appearance: no apparent distress, alert Neurologic Exam: alert, oriented x 3, cooperative, normal mood/affect, nml cerebellar function, nml station & gait, sensation nml, No motor deficits Eye Exam: PERRL/EOMI, eyes nml inspection Ears, Nose, Throat Exam: normal ENT inspection, TMs normal, pharynx normal, moist mucous membranes Neck Exam: normal inspection, non-tender, supple, full range of motion Respiratory Exam: diminished breath sounds, rhonchi, wheezing, No respiratory distress Cardiovascular Exam: regular rate/rhythm, normal heart sounds, normal peripheral pulses Gastrointestinal/Abdomen Exam: soft, normal bowel sounds, No tenderness, No mass Back Exam: normal inspection, normal range of motion, No CVA tenderness, No vertebral tenderness Extremity Exam: normal inspection, normal range of motion, pelvis stable Skin Exam: normal color, warm, dry, No rash Lymphatic Exam: No adenopathy Results - Labs Lab/Micro Results: Lab Results-Last 24 Hours 03/08/17 03/08/17 03/08/17 Range/Units 00:55 05:42 05:42 WBC 7.8 (4.0-10.5) K/mm3 RBC 3.48 L (4.1-5.4) M/mm3 Hgb 10.3 L (12.0-16.0) gm/dl Hct 32.6 L (35-47) % MCV 93.7 (78-100) fl MCH 29.5 (26-32) pg MCHC 31.6 L (32-36) g/dl RDW 14.9 H (11.5-14.0) % Plt Count 248 (150-450) K/mm3 MPV 10.9 H (6-9.5) fl Gran % 64.9 (36.0-66.0) % Lymphocytes % 27.9 (24.0-44.0) % Monocytes % 6.1 (0.0-12.0) % Eosinophils % 1.0 (0.00-5.0) % Basophils % 0.1 (0.0-0.4) % Basophils # 0.01 (0-0.4) Sodium 143 (136-145) mEq/L Potassium 4.2 (3.5-5.1) mEq/L Chloride 112 H (98-107) mEq/L Carbon Dioxide 23.8 (21-32) mEq/L Anion Gap 11.8 (5-15) MEQ/L BUN 10 (9-20) mg/dL Creatinine 0.70 (0.55-1.30) mg/dl Estimated GFR > 60 ML/MIN Glucose 158 H (70-110) MG/DL Lactic Acid 1.6 (0.4-2.0) Calcium 8.1 L (8.5-10.1) mg/dL Total Bilirubin 0.10 L (0.2-1.0) mg/dL AST 31 (15-37) U/L ALT 72 (12-78) U/L Alkaline Phosphatase 88 (46-116) U/L Serum Total Protein 5.9 L (6.4-8.2) gm/dL Albumin 2.7 L (3.4-5.0) g/dL - Other Procedures and Tests Respiratory Therapy 03/08/17 01:20 Respiratory Nebulizer UD Assessment/Plan (1) Sepsis Current Visit: Yes Status: Acute Qualifiers: Sepsis type: sepsis due to unspecified organism Qualified Code(s): A41.9 - Sepsis, unspecified organism Assessment & Plan: Chief Complaint Diagnosis SHORTNESS OF BREATH, BRONCHITIS Allergies Allergy/AdvReac Type Severity Reaction Status Date / Time No Known Drug Allergies Allergy Verified 03/07/17 19:36 Vital Signs (Last 24 hours) Temp Pulse Resp BP Pulse Ox 03/08/17 07:07 98 F 89 20 127/79 97 03/08/17 04:00 97.9 F 92 H 18 118/59 97 03/08/17 01:24 91 H 22 94 L 03/07/17 22:30 97.8 F 90 18 109/55 96 03/07/17 21:51 81 18 93/64 97 03/07/17 21:29 99 03/07/17 20:33 87 18 109/54 97 03/07/17 19:55 99 03/07/17 19:51 96 H 20 99 03/07/17 19:39 24 99 03/07/17 19:31 97.5 F 92 H 24 124/69 99 Home Medications Medication Instructions Recorded Confirmed Last Taken Type Cetirizine HCl [Zyrtec] 10 mg PO DAILY 03/07/17 03/07/17 03/07/17 History Current Medications Generic Name Dose Route Start Last Admin Trade Name Freq PRN Reason Stop Dose Admin Albuterol/Ipratropium 3 ml 03/07/17 22:26 03/08/17 00:27 Duoneb 0.5-3 Mg/3 Ml Neb IH 04/06/17 22:25 3 ml Q4HPRN PRN Administration SHORTNESS OF BREATH/WHEEZING Azithromycin 500 mg in 250 mls @ 250 mls/hr 03/08/17 10:00 Zithromax 500 Mg/ 250 Ml Nacl Premix IV 04/07/17 09:59 Q24H10 YOVANY Ceftriaxone Sodium/Dextrose 1 g in 50 mls @ 100 mls/hr 03/08/17 22:00 Rocephin 1 Gm-D5w 50 Ml Bag IV 04/07/17 21:59 QPM YOVANY Sodium Chloride 1,000 mls @ 100 mls/hr 03/07/17 22:26 03/07/17 23:21 Sodium Chloride 0.9% 1000 Ml IV 04/06/17 22:25 100 mls/hr .Q10H YOVANY Administration Ibuprofen 400 mg 03/08/17 03:01 03/08/17 03:06 Motrin 400 Mg PO 04/07/17 03:00 400 mg QID PRN PRN Administration PAIN Insulin Aspart 0 unit 03/07/17 22:26 Novolog Insulin SQ 04/06/17 22:25 UD PRN HYPERGLYCEMIA Metformin HCl 750 mg 03/07/17 23:45 03/08/17 00:07 Glucophage 500 Mg PO 04/06/17 23:44 750 mg BIDWM YOVANY Administration Discontinued Medications Generic Name Dose Route Start Last Admin Trade Name Freq PRN Reason Stop Dose Admin Albuterol/Ipratropium 3 ml 03/07/17 19:50 03/07/17 20:02 Duoneb 0.5-3 Mg/3 Ml Neb IH 03/07/17 19:51 3 ml STAT ONE Administration Albuterol/Ipratropium Confirm 03/07/17 20:00 Duoneb 0.5-3 Mg/3 Ml Neb Administered 03/07/17 20:01 Dose 3 ml IH .STK-MED ONE Sodium Chloride 1,000 mls @ 999 mls/hr 03/07/17 19:50 03/07/17 19:55 Sodium Chloride 0.9% 1000 Ml IV 03/07/17 20:50 999 mls/hr .Q1H1M STA Administration Sodium Chloride Confirm 03/07/17 19:53 Sodium Chloride 0.9% 1000 Ml Administered 03/07/17 19:54 Dose 1,000 mls @ ud .ROUTE .STK-MED ONE Ceftriaxone Sodium/Dextrose 1 g in 50 mls @ 100 mls/hr 03/07/17 20:23 20:29 Rocephin 1 Gm-D5w 50 Ml Bag IV 03/07/17 20:52 100 mls/hr STAT STA Administration Sodium Chloride 1,000 mls @ 999 mls/hr 03/07/17 20:30 03/07/17 21:36 Sodium Chloride 0.9% 1000 Ml IV 03/07/17 23:30 999 mls/hr .Q1H1M YOVANY Administration Ceftriaxone Sodium/Dextrose Confirm 03/07/17 20:26 Rocephin 1 Gm-D5w 50 Ml Bag Administered 03/07/17 20:27 Dose 1 g in 50 mls @ ud IV .STK-MED ONE Sodium Chloride Confirm 03/07/17 20:51 Sodium Chloride 0.9% 1000 Ml Administered 03/07/17 20:52 Dose 1,000 mls @ ud .ROUTE .STK-MED ONE Sodium Chloride Confirm 03/07/17 21:35 Sodium Chloride 0.9% 1000 Ml Administered 03/07/17 21:36 Dose 1,000 mls @ ud .ROUTE .STK-MED ONE Intake & Output (Last 24 hours) 03/05/17 03/06/17 03/07/17 03/08/17 11:59 11:59 11:59 11:59 Intake Total 585 Output Total 0 Balance 585 Weight 118.841 kg Microbiology Results (Last 24 hours) 03/07/17 20:45 Throat Throat Culture - Pending 03/07/17 20:15 Clean Catch Midstream Urine Culture - Pending 03/07/17 20:15 Blood - Pending 03/07/17 20:15 Blood Blood Culture - Pending 03/07/17 19:40 Blood - Pending 03/07/17 19:40 Blood Blood Culture - Pending Laboratory Results (Last 24 hours) 03/08/17 03/08/17 03/08/17 05:42 05:42 00:55 WBC 7.8 RBC 3.48 L Hgb 10.3 L Hct 32.6 L MCV 93.7 MCH 29.5 MCHC 31.6 L RDW 14.9 H Plt Count 248 MPV 10.9 H Gran % 64.9 Lymphocytes % 27.9 Monocytes % 6.1 Eosinophils % 1.0 Basophils % 0.1 Basophils # 0.01 INR APTT Sodium 143 Potassium 4.2 Chloride 112 H Carbon Dioxide 23.8 Anion Gap 11.8 BUN 10 Creatinine 0.70 Estimated GFR > 60 Glucose 158 H Lactic Acid 1.6 Calcium 8.1 L Total Bilirubin 0.10 L AST 31 ALT 72 Alkaline Phosphatase 88 Serum Total Protein 5.9 L Albumin 2.7 L Ur Collection Type Urine Color Urine Appearance Urine pH Ur Specific [place] Urine Protein Urine Ketones Urine Blood Urine Nitrite Urine Bilirubin Urine Urobilinogen Ur Leukocyte Esterase Urine Glucose Streptococcus Screen Specimen Received 03/07/17 03/07/17 03/07/17 20:45 20:19 20:15 WBC RBC Hgb Hct MCV MCH MCHC RDW Plt Count MPV Gran % Lymphocytes % Monocytes % Eosinophils % Basophils % Basophils # INR APTT Sodium Potassium Chloride Carbon Dioxide Anion Gap BUN Creatinine Estimated GFR Glucose Lactic Acid 2.5 H Calcium Total Bilirubin AST ALT Alkaline Phosphatase Serum Total Protein Albumin Ur Collection Type CLEAN CATCH Urine Color YELLOW Urine Appearance SLIGHTLY CLOUDY Urine pH 5.0 Ur Specific [place] 1.020 Urine Protein NEGATIVE Urine Ketones NEGATIVE Urine Blood NEGATIVE Urine Nitrite NEGATIVE Urine Bilirubin NEGATIVE Urine Urobilinogen NORMAL Ur Leukocyte Esterase NEGATIVE Urine Glucose 1000 Streptococcus Screen NEGATIVE Specimen Received 03/07/17201403/07/17 03/07/17 03/07/17 19:40 19:40 19:40 WBC 7.9 RBC 3.93 L Hgb 11.8 L Hct 36.4 MCV 92.6 MCH 30.0 MCHC 32.4 RDW 14.7 H Plt Count 289 MPV 11.1 H Gran % 62.1 Lymphocytes % 31.0 Monocytes % 5.7 Eosinophils % 1.1 Basophils % 0.1 Basophils # 0.01 INR 0.95 APTT 29.4 Sodium 140 Potassium 3.2 L Chloride 106 Carbon Dioxide 22.3 Anion Gap 14.8 BUN 14 Creatinine 0.78 Estimated GFR > 60 Glucose 248 H Lactic Acid Calcium 8.4 L Total Bilirubin 0.20 AST 39 H ALT 94 H Alkaline Phosphatase 121 H Serum Total Protein 7.1 Albumin 3.4 Ur Collection Type Urine Color Urine Appearance Urine pH Ur Specific [place] Urine Protein Urine Ketones Urine Blood Urine Nitrite Urine Bilirubin Urine Urobilinogen Ur Leukocyte Esterase Urine Glucose Streptococcus Screen Specimen Received Orders (Last 24 hours) Category Date Time Status Bedrest with BRP/BSC ROUTINE Activity 03/07/17 22:26 Active Accucheck ACHS Care 03/07/17 22:26 Active Accucheck STAT Care 03/07/17 20:23 Completed Admission/Status Order ROUTINE Care 03/07/17 22:26 Active Call Admit Doctor for Orders ON ADMISSION Care 03/07/17 22:26 Active Digital Art Director STAT Care 03/07/17 19:49 Completed Clean Catch Urine Specimen STAT Care 03/07/17 19:49 Completed Code Status Order ROUTINE Care 03/07/17 22:26 Active EKG-ER Only STAT Care 03/07/17 19:50 Completed IV Care Q6H Care 03/07/17 22:26 Active IV Insertion STAT Care 03/07/17 19:50 Completed Pulse Oximetry (ED) STAT Care 03/07/17 19:49 Completed Saline Lock STAT Care 03/07/17 19:49 Completed Telemetry ROUTINE Care 03/07/17 22:26 Active Weight,Daily 0600 Care 03/07/17 22:26 Active 1800 Calorie ADA Diet 03/07/17 Breakfast Active CHEST 1 VIEW (PORTABLE) Stat Exams 03/07/17 19:49 Taken BLOOD CULTURE Stat Lab 03/07/17 20:15 Received CBC W DIFF AM.LAB Lab 03/08/17 05:42 Completed CBC W DIFF Stat Lab 03/07/17 19:40 Completed CMP AM.LAB Lab 03/08/17 05:42 Completed CMP Stat Lab 03/07/17 19:40 Completed CULTURE, THROAT Stat Lab 03/07/17 20:45 Received CULTURE,SPUTUM Stat Lab 03/07/17 20:27 Uncollected CULTURE,URINE Stat Lab 03/07/17 20:15 Received Lactic Acid Stat Lab 03/07/17 20:19 Completed Lactic Acid Urgent Lab 03/07/17 23:15 Completed PROTIME WITH INR Stat Lab 03/07/17 19:40 Completed PTT Stat Lab 03/07/17 19:40 Completed STREP SCREEN-BETA A Stat Lab 03/07/17 20:45 Completed UA Stat Lab 03/07/17 20:15 Completed VENOUS BLOOD GAS Stat Lab 03/07/17 20:23 Stop Req Albuterol/Ipratropium 3ml Neb* [DUONEB 0.5-3 MG/3 ml Med 03/07/17 20:00 Discontinued Neb] 3 ml IH .STK-MED ONE Albuterol/Ipratropium 3ml Neb* [DUONEB 0.5-3 MG/3 ml Med 03/07/17 22:26 Active Neb] 3 ml IH Q4HPRN PRN Albuterol/Ipratropium 3ml Neb* [DUONEB 0.5-3 MG/3 ml Med 03/07/17 19:50 Discontinued Neb] 3 ml IH STAT ONE Azithromycin 500 mg/250 ml [Zithromax 500 MG/ 250 ML Med 03/08/17 10:00 Active NaCl Premix] 500 mg in 250 ml IV Q24H10 Ceftriaxone 1 GM/50 ML PREMIX* [ROCEPHIN 1 Gm-D5w 50 ml Med 03/08/17 22:00 Active Bag] 1 g in 50 ml IV QPM Ceftriaxone 1 GM/50 ML PREMIX* [ROCEPHIN 1 Gm-D5w 50 ml Med 03/07/17 20:23 Discontinued Bag] 1 g in 50 ml IV STAT Ceftriaxone 1 GM/50 ML PREMIX* [ROCEPHIN 1 Gm-D5w 50 ml Med 03/07/17 20:26 Discontinued Bag] 1 g in 50 ml IV UD Ibuprofen 400 mg [Motrin 400 mg] Med 03/08/17 03:01 Active 400 mg PO QID PRN PRN Insulin Aspart [NovoLOG Insulin] Med 03/07/17 22:26 Active See Dose Instructions SQ UD PRN Metformin HCl 500 mg [Glucophage 500 MG] Med 03/07/17 23:45 Active 750 mg PO BIDWM NaCl 0.9% 1000 ml [Sodium Chloride 0.9% 1000 ML] 1,000 Med 03/07/17 19:53 Discontinued ml .ROUTE UD NaCl 0.9% 1000 ml [Sodium Chloride 0.9% 1000 ML] 1,000 Med 03/07/17 22:26 Active ml IV 100 mls/hr NaCl 0.9% 1000 ml [Sodium Chloride 0.9% 1000 ML] 1,000 Med 03/07/17 19:50 Discontinued ml IV 999 mls/hr NaCl 0.9% 1000 ml [Sodium Chloride 0.9% 1000 ML] 1,000 Med 03/07/17 20:30 Discontinued ml IV 999 mls/hr Oxygen NASAL CANNULA 2 lpm RT 03/07/17 22:26 Active Respiratory Nebulizer STAT RT 03/07/17 19:51 Completed Respiratory Nebulizer UD RT 03/08/17 01:20 Active Respiratory Therapy Consult ROUTINE RT 03/07/17 22:26 Completed (2) Bronchitis Current Visit: Yes Status: Acute Code(s): J40 - BRONCHITIS, NOT SPECIFIED ACUTE OR CHRONIC (3) Bronchospasm Current Visit: Yes Status: Acute Code(s): J98.01 - ACUTE BRONCHOSPASM
--- NOTE | 2017-03-08 08:37 | XRAY ---
Indication: Sepsis. Comparison: February 19, 2017. Portable chest remains slightly underinflated and clear. Heart and mediastinal structures within normal limits. No new/acute findings.
[2017-03-08] MEDS ORDERED: NORCO 5/325 MG PO PRN (09:26)
[2017-03-08] MEDS ORDERED: SUMATRIPTAN SUCCINATE 50 MG PO PRN (09:26)
[2017-03-08] MEDS ORDERED: TORAdol 10 MG TABLET PO PRN (09:26)
[2017-03-08] MEDS: Zithromax 500 MG/ 250 ML NaCl Premix 500 MG/250 ML IVPB IV SCH (09:28)
[2017-03-08] MEDS: Sodium Chloride 0.9% 1000 ML 1,000 ML IV SCH (09:33)
[2017-03-08] MEDS ORDERED: MEDICATION INTERVENTION MC PRN (09:45)
[2017-03-08] MEDS: Zestril 10 MG PO SCH (09:48)
[2017-03-08] MEDS: ZOLOFT 50 MG TABLET PO SCH (09:49)
[2017-03-08] MEDS: Protonix 40MG Tablet PO SCH (09:49)
[2017-03-08] MEDS: ECOTRIN 81 MG PO SCH (09:49)
[2017-03-08] MEDS: CLARITIN 10 MG PO SCH (09:49)
[2017-03-08] MEDS ORDERED: NON-FORMULARY ITEM (Cetirizine Hcl [Zyrtec] 10 MG) PO SCH (10:00)
[2017-03-08] MEDS ORDERED: Zofran 4 MG/2 ML VIAL IV PRN (11:58)
[2017-03-08] MEDS ORDERED: Zofran 4 MG/2 ML VIAL ONE (12:26)
[2017-03-08] MEDS ORDERED: NON-FORMULARY ITEM (Hydrochlorothiazide [Hydrochlorothiazide] 12.5 MG) PO SCH (22:00)
[2017-03-08] MEDS ORDERED: Acidophilus TABLET PO SCH (22:00)
[2017-03-08] MEDS ORDERED: Zocor 10MG PO SCH (22:00)
[2017-03-08] MEDS ORDERED: ROCEPHIN 1 Gm-D5w 50 ml Bag** 1 G/50 ML IVPB IV SCH (22:00)
[2017-03-08] MEDS ORDERED: hydroDIURIL 25 MG PO SCH (22:00)
[2017-03-08] MEDS ORDERED: LACTOBACILLUS ACIDOPHILUS PO SCH (22:00)
[2017-03-09] MEDS: Glucophage 500 MG PO SCH (08:10)
[2017-03-09] MEDS: CLARITIN 10 MG PO SCH (08:11)
[2017-03-09] MEDS: Zestril 10 MG PO SCH (08:11)
[2017-03-09] MEDS: ECOTRIN 81 MG PO SCH (08:11)
[2017-03-09] MEDS: ZOLOFT 50 MG TABLET PO SCH (08:15)
[2017-03-09] MEDS: Protonix 40MG Tablet PO SCH (08:15)
[2017-03-09] MEDS: Zithromax 500 MG/ 250 ML NaCl Premix 500 MG/250 ML IVPB IV SCH (08:17)
[2017-03-09] MEDS: DUONEB 0.5-3 MG/3 ml Neb IH PRN (08:24)
[2017-03-09 08:28] VITALS: O2SAT 95
[2017-03-09] MEDS ORDERED: BUMEX 1 MG PO SCH (09:00)
[2017-03-09] MEDS ORDERED: Apresoline 25 MG TABLET PO SCH (09:00)
[2017-03-09 11:41] VITALS: BP 141/71; PULSE 97
--- NOTE | 2017-03-09 13:20 | PCM.DS ---
Discharge Summary Date of Admission: 03/07/17 22:21 Admitting Physician: PABLO PALMER Primary Care Provider: PABLO PALMER Allergies Allergies No Known Drug Allergies Allergy (Verified 03/07/17 19:36) Hospital Summary - Hospital Course Hospital Course: Chief Complaint Diagnosis SHORTNESS OF BREATH for 1-2 days Allergies Allergy/AdvReac Type Severity Reaction Status Date / Time No Known Drug Allergies Allergy Verified 03/07/17 19:36 Vital Signs (Last 24 hours) Temp Pulse Resp BP Pulse Ox 03/09/17 11:40 98.1 F 97 H 14 141/71 95 03/09/17 08:26 88 18 95 03/09/17 07:00 96.6 F 88 16 148/70 97 03/09/17 03:00 97.8 F 93 H 20 126/74 96 03/08/17 23:00 98.4 F 93 H 20 110/58 93 L 03/08/17 20:04 79 18 97 03/08/17 19:00 97.8 F 94 H 19 144/76 98 03/08/17 15:33 90 16 98 03/08/17 15:00 97.7 F 88 18 139/84 97 Home Medications Medication Instructions Recorded Confirmed Last Taken Type Cetirizine HCl [Zyrtec] 10 mg PO DAILY 03/07/17 03/07/17 03/07/17 History Current Medications Generic Name Dose Route Start Last Admin Trade Name Freq PRN Reason Stop Dose Admin Hydrocodone Bitart/Acetaminophen 1 tab 03/08/17 09:26 03/08/17 09:48 [place]roke 5/325 Mg PO 03/13/17 09:25 1 tab QID PRN Administration SEVERE PAIN Albuterol/Ipratropium 3 ml 03/07/17 22:26 03/09/17 08:24 Duoneb 0.5-3 Mg/3 Ml Neb IH 04/06/17 22:25 3 ml Q4HPRN PRN Administration SHORTNESS OF BREATH/WHEEZING Aspirin 81 mg 03/08/17 10:00 03/09/17 08:11 Ecotrin 81 Mg PO 04/07/17 09:59 81 mg DAILY YOVANY Administration Hydrochlorothiazide 12.5 mg 03/08/17 22:00 03/08/17 21:50 Hydrodiuril 25 Mg PO 04/07/17 21:59 12.5 mg HS YOVANY Administration Azithromycin 500 mg in 250 mls @ 250 mls/hr 03/08/17 10:00 03/09/17 08:17 Zithromax 500 Mg/ 250 Ml Nacl Premix IV 04/07/17 09:59 Not Given Q24H10 YOVANY Ceftriaxone Sodium/Dextrose 1 g in 50 mls @ 100 mls/hr 03/08/17 22:00 21:53 Rocephin 1 Gm-D5w 50 Ml Bag IV 04/07/17 21:59 Not Given QPM YOVANY Ibuprofen 400 mg 03/08/17 03:01 03/08/17 03:06 Motrin 400 Mg PO 04/07/17 03:00 400 mg QID PRN PRN Administration PAIN Insulin Aspart 0 unit 03/07/17 22:26 Novolog Insulin SQ 04/06/17 22:25 UD PRN HYPERGLYCEMIA Ketorolac Tromethamine 10 mg 03/08/17 09:26 Toradol 10 Mg Tablet PO 03/13/17 09:25 QID PRN PRN PAIN Lactobacillus Acidophilus 1 tab 03/08/17 22:00 03/08/17 21:50 Acidophilus Tablet PO 04/07/17 21:59 1 tab HS YOVANY Administration Lisinopril 10 mg 03/08/17 10:00 03/09/17 08:11 Zestril 10 Mg PO 04/07/17 09:59 10 mg DAILY YOVANY Administration Loratadine 10 mg 03/08/17 10:00 03/09/17 08:11 Claritin 10 Mg PO 04/07/17 09:59 10 mg DAILY YOVANY Administration Metformin HCl 750 mg 03/07/17 23:45 03/09/17 08:10 Glucophage 500 Mg PO 04/06/17 23:44 750 mg BIDWM YOVANY Administration Ondansetron HCl 4 mg 03/08/17 11:58 Zofran 4 Mg/2 Ml Vial IV 04/07/17 11:57 Q4H PRN PRN NAUSEA/VOMITING Pantoprazole Sodium 40 mg 03/08/17 10:00 03/09/17 08:15 Protonix 40mg Tablet PO 04/07/17 09:59 40 mg DAILY YOVANY Administration Sertraline HCl 50 mg 03/08/17 10:00 03/09/17 08:15 Zoloft 50 Mg Tablet PO 04/07/17 09:59 50 mg DAILY YOVANY Administration Simvastatin 10 mg 03/08/17 22:00 03/08/17 21:51 Zocor 10mg PO 04/07/17 21:59 10 mg HS YOVANY Administration Discontinued Medications Generic Name Dose Route Start Last Admin Trade Name Eddie PRN Reason Stop Dose Admin Albuterol/Ipratropium 3 ml 03/07/17 19:50 03/07/17 20:02 Duoneb 0.5-3 Mg/3 Ml Neb IH 03/07/17 19:51 3 ml STAT ONE Administration Albuterol/Ipratropium Confirm 03/07/17 20:00 Duoneb 0.5-3 Mg/3 Ml Neb Administered 03/07/17 20:01 Dose 3 ml IH .STK-MED ONE Bumetanide 1 mg 03/09/17 09:00 03/09/17 09:31 Bumex 1 Mg PO 03/09/17 11:00 1 mg 1XONLY YOVANY Administration Hydralazine HCl 25 mg 03/09/17 09:00 03/09/17 09:31 Apresoline 25 Mg Tablet PO 03/09/17 11:00 25 mg 1XONLY YOVANY Administration Sodium Chloride 1,000 mls @ 999 mls/hr 03/07/17 19:50 03/07/17 19:55 Sodium Chloride 0.9% 1000 Ml IV 03/07/17 20:50 999 mls/hr .Q1H1M STA Administration Sodium Chloride Confirm 03/07/17 19:53 Sodium Chloride 0.9% 1000 Ml Administered 03/07/17 19:54 Dose 1,000 mls @ ud .ROUTE .STK-MED ONE Ceftriaxone Sodium/Dextrose 1 g in 50 mls @ 100 mls/hr 03/07/17 20:23 20:29 Rocephin 1 Gm-D5w 50 Ml Bag IV 03/07/17 20:52 100 mls/hr STAT STA Administration Sodium Chloride 1,000 mls @ 999 mls/hr 03/07/17 20:30 03/07/17 21:36 Sodium Chloride 0.9% 1000 Ml IV 03/07/17 23:30 999 mls/hr .Q1H1M YOVANY Administration Ceftriaxone Sodium/Dextrose Confirm 03/07/17 20:26 Rocephin 1 Gm-D5w 50 Ml Bag Administered 03/07/17 20:27 Dose 1 g in 50 mls @ ud IV .STK-MED ONE Sodium Chloride Confirm 03/07/17 20:51 Sodium Chloride 0.9% 1000 Ml Administered 03/07/17 20:52 Dose 1,000 mls @ ud .ROUTE .STK-MED ONE Sodium Chloride Confirm 03/07/17 21:35 Sodium Chloride 0.9% 1000 Ml Administered 03/07/17 21:36 Dose 1,000 mls @ ud .ROUTE .STK-MED ONE Sodium Chloride 1,000 mls @ 50 mls/hr 03/07/17 22:26 03/08/17 09:33 Sodium Chloride 0.9% 1000 Ml IV 04/06/17 22:25 100 mls/hr .Q20H YOVANY Administration Ondansetron HCl Confirm 03/08/17 12:26 Zofran 4 Mg/2 Ml Vial Administered 03/08/17 12:27 Dose 4 mg .ROUTE .STK-MED ONE Intake & Output (Last 24 hours) 03/07/17 03/08/17 03/09/17 03/10/17 11:59 11:59 11:59 11:59 Intake Total 1365 3772 Output Total 0 Balance 1365 3772 Weight 118.841 kg 118.161 kg Microbiology Results (Last 24 hours) 03/07/17 20:15 Clean Catch Midstream Urine Culture - Final MIXED RICHY; 3 OR MORE TYPES. NO PREDOMINANT ORGANISM. NO FURTHER WORKUP. PLEASE RESUBMIT IF CLINICALLY INDICATED. 03/07/17 19:40 Blood - Pending 03/07/17 19:40 Blood Blood Culture - Preliminary NO GROWTH TO DATE 03/07/17 20:45 Throat Throat Culture - Preliminary NO BETA GROWTH TO DATE Orders (Last 24 hours) Category Date Time Status Bumetanide 1 mg [Bumex 1 mg] Med 03/09/17 09:00 Discontinued 1 mg PO 1XONLY Ceftriaxone 1 GM/50 ML PREMIX* [ROCEPHIN 1 Gm-D5w 50 ml Med 03/08/17 22:00 Active Bag] 1 g in 50 ml IV QPM HydrALAzine HCL 25 MG TAB [Apresoline 25 MG TABLET Med 03/09/17 09:00 Discontinued *] 25 mg PO 1XONLY Hydrochlorothiazide 25 mg [hydroDIURIL 25 MG] Med 03/08/17 22:00 Active 12.5 mg PO HS Lactobacillus Acidophilus [Acidophilus TABLET] Med 03/08/17 22:00 Active 1 tab PO HS Ondansetron HCl 4 mg/2 ml [Zofran 4 MG/2 ML VIAL] Med 03/08/17 12:26 Discontinued 4 mg .ROUTE .STK-MED ONE Simvastatin 10 mg [Zocor 10MG] Med 03/08/17 22:00 Active 10 mg PO HS Patient Care Notes (Last 24 hours) 03/09/17 11:57 Nursing Note by Renetta Truong PT HAS BEEN UP WALKING IN THE HALLWAY BY HERSELF MULTIPLE TIMES. PT REPORTS SHE IS SHORT OF BREATH WITH ACTIVITY BUT "I DON'T FEEL LIKE I NEED A BREATHING TREATMENT. i FEEL LIKE I'M SHORT OF BREATH FROM HAVING TOO MUCH FLUID". PT HAS VOIDED 700CC SINCE RECEIVING BUMEX AND HCTZ. DR. PALMER AWARE AND WILL BE IN SHORTLY TO MAKE ROUNDS ON PT. Initialized on 03/09/17 11:57 - END OF NOTE 03/09/17 08:28 Nursing Note by Haven Lucas 1800 03/08/[address] Palmer called and asked if staff need to restart IV since nothing was due IV till 03/09/17. Dr. Palmer told pt she would be going 03/09/17. Initialized on 03/09/17 08:28 - END OF NOTE - Vitals & Intake/Output Vital Signs: Vital Signs Temperature 98.1 F 03/09/17 11:40 Pulse Rate 97 H 03/09/17 11:40 Respiratory Rate 14 03/09/17 11:40 Blood Pressure 141/71 03/09/17 11:40 O2 Sat by Pulse Oximetry 95 03/09/17 11:40 Oxygen-Last Documented O2 Percentage 2 Liters = 28% Intake & Output: Intake & Output 03/07/17 03/08/17 03/09/17 03/10/17 11:59 11:59 11:59 11:59 Intake Total 1365 3772 Output Total 0 Balance 1365 3772 Weight 118.841 kg 118.161 kg - Lab Result Diagrams: 03/08/17 05:42 03/08/17 05:42 Lab Results-Last 24 Hrs: Accuchecks Date 03/09/17 Date 03/09/17 Date 03/08/17 Time 11:32 Time 07:56 Time 16:15 Accucheck Value: 113 Accucheck Value: 142 Accucheck Value: 153 Accucheck Value: 125 Micro Results-Entire Visit: Accuchecks Date 03/09/17 Date 03/09/17 Date 03/08/17 Time 11:32 Time 07:56 Time 16:15 Accucheck Value: 113 Accucheck Value: 142 Accucheck Value: 153 Accucheck Value: 125 - Procedures and Test Procedures and Tests throughout Hospitalization: Therapy Orders & Screens 03/08/17 01:20 Respiratory Nebulizer UD Comment: DUONEB Q4PRN Diagnosis: SHORTNESS OF BREATH, BRONCHITIS Discharge Exam General Appearance: no apparent distress, alert Neurologic Exam: alert, oriented x 3, cooperative, normal mood/affect, nml cerebellar function, sensation nml, No motor deficits Skin Exam: normal color, warm, dry Eye Exam: PERRL, EOMI, eyes nml inspection Ears, Nose, Throat Exam: normal ENT inspection, pharynx normal, moist mucous membranes Neck Exam: normal inspection, non-tender, supple, full range of motion Respiratory Exam: normal breath sounds, lungs clear, No respiratory distress Cardiovascular Exam: regular rate/rhythm, normal heart sounds Gastrointestinal/Abdomen Exam: soft, No tenderness, No mass Extremity Exam: normal inspection, normal range of motion Back Exam: normal inspection, normal range of motion, No CVA tenderness, No vertebral tenderness Pelvic Exam: deferred Rectal Exam: deferred Final Diagnosis/Problem List - Final Discharge Diagnosis/Problem (1) Sepsis Current Visit: Yes Status: Resolved (2) Bronchitis Current Visit: Yes Status: Resolved (3) Bronchospasm Current Visit: Yes Status: Resolved - Discharge Discharge Date: 03/09/17 Disposition: Home, Self-Care Condition: Stable Prescriptions: Continue Metformin HCl [Metformin HCl ER] 750 mg PO BID Sertraline HCl [Zoloft] 50 mg PO DAILY Lisinopril [Zestril] 10 mg PO DAILY Hydrochlorothiazide 12.5 mg PO HS Ketorolac Tromethamine [Toradol] 10 mg PO QID PRN #15 tablet PRN Reason: Pain Hydrocodone Bit/Acetaminophen [[place]roke 5-325 Tablet] 1 each PO QID PRN #8 tablet PRN Reason: Severe Pain Lactobacillus Acidophilus [Acidophilus Lactobacilli] 1 ea HS Aspirin 81 gm Chew [Baby Aspirin 81 mg Chew] 81 mg DAILY Pravastatin Sodium [Pravachol] 10 mg HS Omeprazole 20 MG [Prilosec 20 mg] 20 mg DAILY Sumatriptan Succinate [Imitrex] 50 mg PO Q4-6HPRN PRN PRN Reason: Pain Cetirizine HCl [Zyrtec] 10 mg PO DAILY Instructions: Bronchitis, Diabetes Type 2 Additional Instructions: increase hydrochlorothiazide twice a day for 3 days, follow up with your physician in 1 week Follow up with: LORE NICOLE MD [NON-STAFF PHY W/O PRIVILEGES] -
== END 2017-03-09 13:50 | disposition home or self-care (01) ==
LOC: ED 19:25 → MED SURG 22:21
PROVIDERS: ADMIT General Practice; ATTEND General Practice
DX: A41.9 Sepsis, unspecified organism (principal); J40 Bronchitis, not specified as acute or chronic; J98.01 Acute bronchospasm; I10 Essential (primary) hypertension; E11.9 Type 2 diabetes mellitus without complications; Z79.01 Long term (current) use of anticoagulants; K21.9 Gastro-esophageal reflux disease without esophagitis; Z79.899 Other long term (current) drug therapy
CPT/HCPCS: 36000; 36415; 71010; 80053; 81002; 82962; 83036; 83605; 85025; 85610; 85730; 87040; 87070; 87086; 87430; 93005; 93041; 93268; 94640; 94760; 96360; 96361; 96365; 99285; G0378; J0456; J0696; J2405; A9270-GY

== ENCOUNTER 2017-07-24 22:53 | Emergency (ER) | payer OTHER ==
[2017-07-24] MEDS ORDERED: TORAdol 30 mg Injection IM ONE (23:10)
[2017-07-24] MEDS ORDERED: Norflex 60 MG/2 ML IM ONE (23:11)
[2017-07-24] MEDS ORDERED: Norflex 60 MG/2 ML ONE (23:15)
[2017-07-24] MEDS ORDERED: TORAdol 30 mg Injection ONE (23:15)
--- NOTE | 2017-07-24 23:15 | ERPHSYRPT ---
- History of Present Illness Time Seen by Provider: 07/24/17 23:14 Source: patient, family Exam Limitations: no limitations Patient Subjective Stated Complaint: Migraine, worse with light and sound. Onset at 20:00. Hx of complaint Triage Nursing Assessment: Pt presents to the ED with complaints of migraine, hx of complaint. Pt denies new injury. Pt states pain is worse with light and sound. No distress noted. Pt states she took Imitrex x2 without improvement in symptoms. skin PWD. Physician History: Migraine, worse with light and sound. Onset at 20:00. Pt states pain is worse with light and sound. No distress noted. Pt states she took Imitrex x2 without improvement in symptoms. Timing/Duration: today Quality: aching Severity of Pain-Max: moderate Severity of Pain-Current: moderate Recent Head Trauma: no recent headache/trauma Allergies/Adverse Reactions: No Known Drug Allergies Allergy (Verified 03/07/17 19:36) Home Medications: Hydrochlorothiazide 12.5 mg PO HS 02/17/17 [History] Lisinopril [Zestril] 10 mg PO DAILY 02/17/17 [History] Metformin HCl [Metformin HCl ER] 750 mg PO BID 02/17/17 [History] Sertraline HCl [Zoloft] 50 mg PO DAILY 02/17/17 [History] Aspirin 81 gm Chew [Baby Aspirin 81 mg Chew] 81 mg DAILY 02/19/17 [History ] Lactobacillus Acidophilus [Acidophilus Lactobacilli] 1 ea HS 02/19/17 [History] Omeprazole 20 MG [Prilosec 20 mg] 20 mg DAILY 02/19/17 [History] Pravastatin Sodium [Pravachol] 10 mg HS 02/19/17 [History] Sumatriptan Succinate [Imitrex] 50 mg PO Q4-6HPRN PRN 02/19/17 [History] Cetirizine HCl [Zyrtec] 10 mg PO DAILY 03/07/17 [History] Glimepiride [Glimepiride] 2 mg PO DAILY 07/24/17 [History] Hx Tetanus, Diphtheria Vaccination/Date Given: Yes Hx Influenza Vaccination/Date Given: Yes Hx Pneumococcal Vaccination/Date Given: No Immunizations Up to Date: Yes - Review of Systems Constitutional: No Fever, No Chills Eyes: No Symptoms Ears, Nose, & Throat: No Symptoms Respiratory: No Cough, No Dyspnea Cardiac: No Chest Pain, No Edema, No Syncope Abdominal/Gastrointestinal: No Abdominal Pain, No Nausea, No Vomiting, No Diarrhea Genitourinary Symptoms: No Dysuria Musculoskeletal: No Back Pain, No Neck Pain Skin: No Rash Neurological: Headache, No Dizziness, No Focal Weakness, No Sensory Changes Psychological: No Symptoms Endocrine: No Symptoms All Other Systems: Reviewed and Negative - Past Medical History Pertinent Past Medical History: Yes Neurological History: Migraines ENT History: No Pertinent History Cardiac History: Hypertension Respiratory History: Bronchitis, Pneumonia Endocrine Medical History: Diabetes Type II Musculoskeletal History: No Pertinent History GI Medical History: GERD, Irritable Bowel, Polyps History: No Pertinent History Psycho-Social History: No Pertinent History Female Reproductive Disorders: No Pertinent History - Past Surgical History Past Surgical History: Yes Neuro Surgical History: No Pertinent History Cardiac: No Pertinent History Respiratory: No Pertinent History Gastrointestinal: Appendectomy, Cholecystectomy Genitourinary: No Pertinent History Musculoskeletal: No Pertinent History Female Surgical History: Hysterectomy - Social History Smoking Status: Never smoker Exposure to second hand smoke: No Drug Use: none Patient Lives Alone: No - Female History Hx Now: No - Nursing Vital Signs Nursing Vital Signs: Initial Vital Signs Temperature 97.7 F 07/24/17 22:59 Pulse Rate 80 07/24/17 22:59 Respiratory Rate 18 07/24/17 22:59 Blood Pressure 140/91 07/24/17 22:59 O2 Sat by Pulse Oximetry 97 07/24/17 22:59 Pain Scale Pain Intensity 10 - Physical Exam General Appearance: no apparent distress Eye Exam: PERRL/EOMI Ears, Nose, Throat Exam: normal ENT inspection, moist mucous membranes Neck Exam: normal inspection, supple, full range of motion, No meningismus Respiratory Exam: normal breath sounds, lungs clear Cardiovascular Exam: regular rate/rhythm, normal heart sounds Gastrointestinal/Abdominal Exam: soft, No tenderness, No distention Back Exam: normal inspection, normal range of motion Mental Status Exam: alert, oriented x 3, cooperative dust mop maker Exam: normal speech, PERRL, No facial droop Coordination/Gait Exam: normal cerebellar function Motor/Sensory Exam: no motor deficit, no sensory deficit Skin Exam: normal color, warm, dry, No rash SpO2: 97 Oxygen Delivery: Room Air - Course Nursing assessment & vital signs reviewed: Yes Ordered Tests: Medication Summary Discontinued Medications Generic Name Dose Route Start Last Admin Trade Name Eddie PRN Reason Stop Dose Admin Ketorolac Tromethamine 60 mg 07/24/17 23:10 07/24/17 23:15 Toradol 30 Mg Injection IM 07/24/17 23:11 60 mg STAT ONE Administration Ketorolac Tromethamine Confirm 07/24/17 23:15 Toradol 30 Mg Injection Administered 07/24/17 23:16 Dose 60 mg .ROUTE .STK-MED ONE Orphenadrine Citrate 60 mg 07/24/17 23:11 07/24/17 23:15 Norflex 60 Mg/2 Ml IM 07/24/17 23:12 60 mg STAT ONE Administration Orphenadrine Citrate Confirm 07/24/17 23:15 Norflex 60 Mg/2 Ml Administered 07/24/17 23:16 Dose 60 mg .ROUTE .STK-MED ONE - Progress Progress: improved Counseled pt/family regarding: diagnosis, need for follow-up - Departure Time of Disposition: 23:24 Departure Disposition: Home Clinical Impression: Migraine headache Qualifiers: Migraine type: with aura Status migrainosus presence: with status migrainosus Intractability: intractable Qualified Code(s): G43.111 - Migraine with aura, intractable, with status migrainosus Condition: Stable Critical Care Time: No Referrals: LORE NICOLE MD [Primary Care Provider] - Instructions: Migraine Headache (DC), Migraine Headaches in Adults Additional Instructions: HEADACHE 1. After discharge from the emergency department, you should rest at home in a cool, dark, quiet place for 12-24 hours. 2. If any of the following signs or symptoms are noticed, you should be re- evaluated right away: A. Visual changes B. Stiff Neck C. Change in quality or location of pain D. Fever E. Recurrent vomiting 3. If pain medications were prescribed or given, they may cause drowsiness. BUSTER WEBER was seen on 07/24/17 n the Emergency Room. At that time you were treated for an emergent condition, during your visit Laboratory, Radiology and/or other procedures may have been ordered. It is very important that you follow-up with your Primary Care Physician LORE NICOLE within the next 24- 48 hours to review your Emergency Room visit and the final results of testing that was ordered. Some test results such as Urine Cultures, Blood Cultures, and other cultures if ordered will not be finalized for 24-48 hours. If you do not have a Primary Care Provider please call the medical records department at [phone] to obtain a copy of your results or you may sign into our patient portal to obtain these results by visiting us @ [email or web address] and completing the following steps: 1. Click on the Patient Portal link 2. Click the Patient Self Enrollment Link to complete the enrollment form and entering your 3. Once the enrollment form is completed you will receive an email with a temporary ID and password at the email address you provided. 4. Next choose a user name and password. Your user name must be at least 4 characters long and your password must be at least 4 characters long. 5. Choose a security question from the list and provide your answer to the question. If you already have signed into the Health Portal you may access your Health Care Information 17/11 by the following steps: 1. Login to our website @ [email or web address] 2. Enter your original user name and password. FAQS The [facility] Health Portal is an online tool that contains your Lab Results, Radiology Reports, Visit History, Discharge Instructions and Health Summary Lab and Radiology Results will not be available for 72 hours on the portal. The Portal is a secure site, passwords are encryted and URLs are re-written so they cannot be copied and pasted. You and authorized family members are the only ones who can access your Portal. Also there is a timeout feature that protects your information if you leave the Portal page open. If you have technical difficulty please use the Contact Us link on the page this will allow you to submit any questions you have regarding the Portal or you may contact the Medical Record Department at [phone].
[2017-07-24 23:51] VITALS: BP 119/80; PULSE 84; O2SAT 98
== END 2017-07-24 23:35 | disposition home or self-care (01) ==
LOC: ED 22:53
DX: G43.909 Migraine, unspecified, not intractable, without status migrainosus (principal); E11.9 Type 2 diabetes mellitus without complications; Z79.4 Long term (current) use of insulin; Z79.899 Other long term (current) drug therapy
CPT/HCPCS: 96372; 99284; J1885; J2360

== ENCOUNTER 2017-08-05 21:46 | Observation (INO) | payer OTHER ==
[2017-08-05] MEDS ORDERED: DUONEB 0.5-3 MG/3 ml Neb IH ONE ×2 (22:03→22:07)
[2017-08-05] MEDS ORDERED: solu-MEDROL 125 MG IV ONE (22:03)
[2017-08-05 22:11] LABS: BASOPHIL % 0.2 % (0.0-0.4); Basophil (Absolute #) 0.02 (0-0.4); Eosinophil % 1.1 % (0.00-5.0); Eosinophil (Absolute #) 0.12 (0-0.5); Granulocyte Absolute (ANC) 7.24 (1.4-6.9); Granulocytes % 63.4 % (36.0-66.0); Hematocrit 37.3 % (35-47); Hemoglobin 12.1 gm/dl (12.0-16.0); Lymphocyte (Absolute #) 3.54 (1.0-4.6); Lymphocytes % 31.1 % (24.0-44.0); Mean Corpuscular Hemoglobin 28.9 pg (26-32); Mean Corpuscular Hgb Concent. 32.4 g/dl (32-36); Mean Platelet Volume 10.9 fl (6-9.5); Monocyte (Absolute #) 0.48 (0.0-1.3); Monocytes % 4.2 % (0.0-12.0); Platelet Count 374 K/mm3 (150-450); Red Blood Count 4.19 M/mm3 (4.1-5.4); White Blood Count 11.4 K/mm3 (4.0-10.5)
[2017-08-05] MEDS ORDERED: Sodium Chloride 0.9% 1000 ML 1,000 ML ONE (22:11)
[2017-08-05] MEDS ORDERED: solu-MEDROL 125 MG ONE (22:11)
[2017-08-05] MEDS ORDERED: Sodium Chloride 0.9% 1000 ML 1,000 ML IV SCH (22:15)
--- NOTE | 2017-08-05 22:30 | ERPHSYRPT ---
- History of Present Illness Time Seen by Provider: 08/05/17 22:00 Source: patient Exam Limitations: clinical condition Patient Subjective Stated Complaint: pt states she has been having increasing shortness of breath after work today. Triage Nursing Assessment: pt alert and oriented, asnwers questions approp. pt ambulatory with steady gait ntoed. short of breath at rest. exp wheeze noted. skin pink warm and dry. Physician History: PATIENT WITH A HISTORY OF HYPERTENSION, TYPE 2 DIABETES AND ASTHMA COMPLAINS OF DYSPNEA TODAY, HAS HAD MINIMAL RELIEF WITH ALBUTEROL NEBULIZERS X 2. HAS A NONPRODUCTIVE COUGH, DENIES FEVER OR CHILLS. Timing/Duration: today Activities at Onset: activity Severity of Dyspnea-Max: moderate Severity of Dyspnea-Current: moderate Possible Cause: occasional episodes Modifying Factors: Improves With: activity, albuterol nebulizer, coughing Associated Symptoms: cough International travel in last 2 weeks: No Allergies/Adverse Reactions: No Known Drug Allergies Allergy (Verified 08/05/17 22:04) Home Medications: Hydrochlorothiazide 12.5 mg PO HS 02/17/17 [History] Lisinopril [Zestril] 10 mg PO DAILY 02/17/17 [History] Metformin HCl [Metformin HCl ER] 750 mg PO BID 02/17/17 [History] Sertraline HCl [Zoloft] 50 mg PO DAILY 02/17/17 [History] Aspirin 81 gm Chew [Baby Aspirin 81 mg Chew] 81 mg DAILY 02/19/17 [History ] Lactobacillus Acidophilus [Acidophilus Lactobacilli] 1 ea HS 02/19/17 [History] Omeprazole 20 MG [Prilosec 20 mg] 20 mg DAILY 02/19/17 [History] Pravastatin Sodium [Pravachol] 10 mg HS 02/19/17 [History] Sumatriptan Succinate [Imitrex] 50 mg PO Q4-6HPRN PRN 02/19/17 [History] Cetirizine HCl [Zyrtec] 10 mg PO DAILY 03/07/17 [History] Glimepiride [Glimepiride] 2 mg PO DAILY 07/24/17 [History] Hx Tetanus, Diphtheria Vaccination/Date Given: Yes Hx Influenza Vaccination/Date Given: Yes Hx Pneumococcal Vaccination/Date Given: No Immunizations Up to Date: Yes - Review of Systems Constitutional: No Fever, No Chills Eyes: No Symptoms Ears, Nose, & Throat: No Symptoms Respiratory: Cough, Dyspnea, Dyspnea on Exertion (DYE) Cardiac: No Symptoms, No Chest Pain, No Edema, No Syncope Abdominal/Gastrointestinal: No Symptoms, No Abdominal Pain, No Nausea, No Vomiting, No Diarrhea Genitourinary Symptoms: No Symptoms, No Dysuria Musculoskeletal: No Symptoms, No Back Pain, No Neck Pain Skin: No Rash Neurological: No Dizziness, No Focal Weakness, No Sensory Changes Psychological: No Symptoms Endocrine: No Symptoms All Other Systems: Reviewed and Negative - Past Medical History Pertinent Past Medical History: Yes Neurological History: Migraines ENT History: No Pertinent History Cardiac History: Hypertension Respiratory History: Bronchitis, Pneumonia Endocrine Medical History: Diabetes Type II Musculoskeletal History: No Pertinent History GI Medical History: GERD, Irritable Bowel, Polyps History: No Pertinent History Psycho-Social History: No Pertinent History Female Reproductive Disorders: No Pertinent History - Past Surgical History Past Surgical History: Yes Neuro Surgical History: No Pertinent History Cardiac: No Pertinent History Respiratory: No Pertinent History Gastrointestinal: Appendectomy, Cholecystectomy Genitourinary: No Pertinent History Musculoskeletal: No Pertinent History Female Surgical History: Hysterectomy - Social History Smoking Status: Never smoker Exposure to second hand smoke: No Drug Use: none Patient Lives Alone: No - Female History Hx Last Menstrual Period: hyster Hx Now: No - Nursing Vital Signs Nursing Vital Signs: Initial Vital Signs Temperature 97.8 F 08/05/17 21:52 Pulse Rate 89 08/05/17 21:52 Respiratory Rate 22 08/05/17 21:52 Blood Pressure 145/96 08/05/17 21:52 O2 Sat by Pulse Oximetry 99 08/05/17 21:52 Pain Scale Pain Intensity 0 - Physical Exam General Appearance: mild distress Eye Exam: PERRL/EOMI Neck Exam: normal inspection, supple Respiratory Exam: diminished breath sounds, wheezing (MINIMAL EXPIRATORY WHEEZES ) Cardiovascular/Chest Exam: normal heart sounds, regular rate/rhythm Abdominal/Gastrointestinal Exam: soft, No tenderness, No distention, No mass Extremity Exam: non-tender, normal range of motion, normal inspection, no calf tenderness, no pedal edema Peripheral Pulses Exam: carotid (R): 2+, carotid (L): 2+, femoral (R): 2+, femoral (L): 2+, dorsalis-pedis (R): 2+, dorsalis-pedis (L): 2+ Neurologic Exam: alert, oriented x 3, cooperative, 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 as tested, sensation nml, No motor deficits Skin Exam: normal color, warm, No dry SpO2 Interpretation: normal SpO2: 99 Oxygen Delivery: Room Air - Radiology Exams Chest X-ray Interpretation: Interpreted by me (RIGHT LOWER LOBE INFILTRATE) Ordered Tests: Active Orders 24 hr Category Date Time Status Email Marketing Manager STAT Care 08/05/17 22:02 Active EKG-ER Only STAT Care 08/05/17 22:01 Active IV Insertion STAT Care 08/05/17 22:01 Active Oxygen-ED Only NASAL CANNULA 2 lpm Care 08/05/17 22:01 Active CHEST 1 VIEW (PORTABLE) Stat Exams 08/05/17 22:02 Taken BLOOD CULTURE Stat Lab 08/05/17 22:20 Received BMP Stat Lab 08/05/17 22:00 Completed CBC W DIFF Stat Lab 08/05/17 22:01 Completed D-DIMER QUANTITATION Stat Lab 08/05/17 22:00 Completed MAGNESIUM Stat Lab 08/05/17 22:00 Completed TROPONIN Q3H Lab 08/05/17 22:00 Completed TROPONIN Q3H Lab 08/06/17 01:15 Ordered TROPONIN Q3H Lab 08/06/17 04:15 Ordered TROPONIN Q3H Lab 08/06/17 07:15 Ordered TROPONIN Q3H Lab 08/06/17 10:15 Ordered Peak Expiratory Flow Rate ONCE RT 08/05/17 22:01 Active Respiratory Nebulizer STAT RT 08/05/17 22:04 Active Respiratory Nebulizer STAT RT 08/05/17 22:44 Active Medication Summary Generic Name Dose Route Start Last Admin Trade Name Freq PRN Reason Stop Dose Admin Sodium Chloride 1,000 mls @ 250 mls/hr 08/05/17 22:15 08/05/17 22:16 Sodium Chloride 0.9% 1000 Ml IV 09/04/17 22:14 250 mls/hr .Q4H YOVANY Administration Discontinued Medications Generic Name Dose Route Start Last Admin Trade Name Freq PRN Reason Stop Dose Admin Albuterol Sulfate 10 mg 08/05/17 22:43 Proventil 2.5 Mg/3 Ml Neb IH 08/05/17 22:44 STAT ONE Albuterol/Ipratropium 3 ml 08/05/17 22:03 08/05/17 22:09 Duoneb 0.5-3 Mg/3 Ml Neb IH 08/05/17 22:04 3 ml STAT ONE Administration Albuterol/Ipratropium Confirm 08/05/17 22:07 Duoneb 0.5-3 Mg/3 Ml Neb Administered 08/05/17 22:08 Dose 3 ml IH .STK-MED ONE Methylprednisolone Sodium Succinate 125 mg 08/05/17 22:03 08/05/17 22:16 Solu-Medrol 125 Mg IV 08/05/17 22:04 125 mg STAT ONE Administration Methylprednisolone Sodium Succinate Confirm 08/05/17 22:11 Solu-Medrol 125 Mg Administered 08/05/17 22:12 Dose 125 mg .ROUTE .STK-MED ONE Lab/Rad Data: Laboratory Result Diagrams 08/05/17 22:01 08/05/17 22:00 Laboratory Results 08/05/17 08/05/17 08/05/17 Range/Units 22:01 22:00 22:00 WBC 11.4 H (4.0-10.5) K/mm3 RBC 4.19 (4.1-5.4) M/mm3 Hgb 12.1 (12.0-16.0) gm/dl Hct 37.3 (35-47) % MCV 89.0 (78-100) fl MCH 28.9 (26-32) pg MCHC 32.4 (32-36) g/dl RDW 15.0 H (11.5-14.0) % Plt Count 374 (150-450) K/mm3 MPV 10.9 H (6-9.5) fl Gran % 63.4 (36.0-66.0) % Eos # (Auto) 0.12 (0-0.5) Absolute Lymphs (auto) 3.54 (1.0-4.6) Absolute Monos (auto) 0.48 (0.0-1.3) Lymphocytes % 31.1 (24.0-44.0) % Monocytes % 4.2 (0.0-12.0) % Eosinophils % 1.1 (0.00-5.0) % Basophils % 0.2 (0.0-0.4) % Absolute Granulocytes 7.24 H (1.4-6.9) Basophils # 0.02 (0-0.4) D-Dimer < 215 L (215-500) ng/mL Sodium (137-145) mmol/L Potassium (3.5-5.1) mmol/L Chloride (98-107) mmol/L Carbon Dioxide (22-30) mmol/L Anion Gap (5-15) MEQ/L BUN (7-17) mg/dL Creatinine (0.52-1.04) mg/dL Estimated GFR ML/MIN Glucose (74-106) mg/dL Calcium (8.4-10.2) mg/dL Magnesium (1.6-2.3) mg/dL Troponin I < 0.012 (0.000-0.034) ng/mL 08/05/17 Range/Units 22:00 WBC (4.0-10.5) K/mm3 RBC (4.1-5.4) M/mm3 Hgb (12.0-16.0) gm/dl Hct (35-47) % MCV (78-100) fl MCH (26-32) pg MCHC (32-36) g/dl RDW (11.5-14.0) % Plt Count (150-450) K/mm3 MPV (6-9.5) fl Gran % (36.0-66.0) % Eos # (Auto) (0-0.5) Absolute Lymphs (auto) (1.0-4.6) Absolute Monos (auto) (0.0-1.3) Lymphocytes % (24.0-44.0) % Monocytes % (0.0-12.0) % Eosinophils % (0.00-5.0) % Basophils % (0.0-0.4) % Absolute Granulocytes (1.4-6.9) Basophils # (0-0.4) D-Dimer (215-500) ng/mL Sodium 141 (137-145) mmol/L Potassium 3.4 L (3.5-5.1) mmol/L Chloride 106 (98-107) mmol/L Carbon Dioxide 21 L (22-30) mmol/L Anion Gap 17.3 H (5-15) MEQ/L BUN 18 H (7-17) mg/dL Creatinine 0.71 (0.52-1.04) mg/dL Estimated GFR > 60.0 ML/MIN Glucose 203 H (74-106) mg/dL Calcium 9.8 (8.4-10.2) mg/dL Magnesium 1.7 (1.6-2.3) mg/dL Troponin I (0.000-0.034) ng/mL - Progress Progress: improved, re-examined Progress Note: 08/05/17 22:36 ADMINISTERED DUONEB AEROSOL TX , IV SOLUMEDROL 125MG, CONTINUOUS NEBULIZER ALBUTEROL 10MG OVER 1 HOUR 08/06/17 00:15 AFTER 2 SETS OF BLOOD CULTURES ADMINISTERED ROCEPHIN 1GM IVPB Blood Culture(s) Obtained: Yes Antibiotics given: Yes Discussed with : Alen (DISCUSSED WITH DR LEON AT 2345 FOR OBSERVATION) - Departure Time of Disposition: 00:16 Departure Disposition: Observation Clinical Impression: PNEUMONIA, ACUTE EXACERBATION ASTHMA Condition: Stable Critical Care Time: No Referrals: LORE NICOLE MD [Primary Care Provider] -
[2017-08-05] MEDS ORDERED: PROVENTIL 2.5 MG/3 ML NEB IH ONE (22:43)
[2017-08-05 22:44] LABS: ANION GAP 17.3 MEQ/L (5-15); BLOOD UREA NITROGEN 18 mg/dL (7-17); CHLORIDE 106 mmol/L (98-107); Calcium 9.8 mg/dL (8.4-10.2); Carbon Dioxide 21 mmol/L (22-30); Creatinine 1 0.71 mg/dL (0.52-1.04); Glucose 203 mg/dL (74-106); Potassium 3.4 mmol/L (3.5-5.1); SODIUM 141 mmol/L (137-145)
[2017-08-06] MEDS ORDERED: Xopenex 1.25 MG/0.5 ML UD NEBULE IH PRN ×2 (00:22→07:15)
[2017-08-06] MEDS ORDERED: ROCEPHIN 1 Gm-D5w 50 ml Bag** 1 G/50 ML IVPB IV STA (00:27)
[2017-08-06] MEDS ORDERED: Sodium Chloride 0.9% 1000 ML 1,000 ML IV SCH (00:30)
[2017-08-06] MEDS: DUONEB 0.5-3 MG/3 ml Neb IH SCH ×3 (06:23→10:45)
[2017-08-06] MEDS: solu-MEDROL 125 MG IV SCH ×2 (06:40→11:53)
[2017-08-06] MEDS ORDERED: Amaryl 2 MG PO SCH (08:00)
[2017-08-06] MEDS ORDERED: Glucophage 850 MG PO SCH (08:00)
--- NOTE | 2017-08-06 08:06 | PCM.SSS ---
History of Present Illness - Chief Complaint Chief Complaint: PNEUMONIA History of Present Illness: is a 47 year old female who presented to the ER with wheezing and shortness of breath. she has improved dramatically overnight with IV steroids and nebulizers, sats are good on room air and she feels well today. - Review of Systems Constitutional: No Fever, No Chills Respiratory: Short Of Breath, Wheezing, No Cough Cardiac: No Chest Pain, No Edema, No Syncope Abdominal/Gastrointestinal: No Abdominal Pain, No Nausea, No Vomiting, No Diarrhea Skin: No Rash All Other Systems: Reviewed and Negative Medications & Allergies Home Medications: Home Medication List Hydrochlorothiazide 12.5 mg PO HS 02/17/17 [History Confirmed 08/05/17] Lisinopril [Zestril] 10 mg PO DAILY 02/17/17 [History Confirmed 08/05/17] Sertraline HCl [Zoloft] 50 mg PO DAILY 02/17/17 [History Confirmed 08/05/17] Aspirin 81 gm Chew [Baby Aspirin 81 mg Chew] 81 mg DAILY 02/19/17 [ History Confirmed 08/05/17] Lactobacillus Acidophilus [Acidophilus Lactobacilli] 1 ea HS 02/19/17 [History Confirmed 08/05/17] Omeprazole 20 MG [Prilosec 20 mg] 20 mg DAILY 02/19/17 [History Confirmed ] Pravastatin Sodium [Pravachol] 10 mg HS 02/19/17 [History Confirmed 08/05/17] Sumatriptan Succinate [Imitrex] 50 mg PO Q4-6HPRN PRN 02/19/17 [History Confirmed 08/05/17] Cetirizine HCl [Zyrtec] 10 mg PO DAILY 03/07/17 [History Confirmed 08/05/17] Glimepiride 2 mg PO DAILY 07/24/17 [History Confirmed 08/05/17] Metformin HCl Xr 500 mg [Glucophage XR 500 MG] 1,000 mg PO DAILY 08/06/17 [History Confirmed 08/06/17] Prednisone 20 mg [Deltasone 20 mg] 20 mg PO UD #18 tablet 08/06/17 [Rx] Allergies/Adverse Reactions: Allergies Allergy/AdvReac Type Severity Reaction Status Date / Time No Known Drug Allergies Allergy Verified 08/05/17 22:04 - Past Medical History Past Medical History: Yes Neurological History: Migraines ENT History: No Pertinent History Cardiac History: Hypertension Respiratory History: Bronchitis, Pneumonia Endocrine Medical History: Diabetes Type II Musculoskelatal History: No Pertinent History GI Medical History: GERD, Irritable Bowel, Polyps History: No Pertinent History Pyscho-Social History: No Pertinent History Reproductive Disorders: No Pertinent History - Female History Hx Last Menstrual Period: hyster Are you now?: No - Past Surgical History Past Surgical History: Yes Neuro Surgical History: No Pertinent History Cardiac History: No Pertinent History Respiratory Surgery: No Pertinent History GI Surgical History: Appendectomy, Cholecystectomy Genitourinary Surgical Hx: No Pertinent History Musculskeletal Surgical Hx: No Pertinent History Female Surgical History: Hysterectomy - Social History Smoking Status: Never smoker Exposure to second hand smoke: No Alcohol: None Drug Use: none - Physical Exam Vital Signs: Vital Signs - 24 hr Temp Pulse Resp BP Pulse Ox 08/06/17 07:51 97.7 F 107 H 18 129/76 97 08/06/17 06:51 101 H 16 97 08/06/17 04:00 97.5 F 97 H 16 89/46 94 L 08/06/17 01:32 98.1 F 106 H 18 84/54 97 08/06/17 00:16 99 08/05/17 23:50 92 H 18 116/55 98 08/05/17 22:54 87 18 106/72 98 08/05/17 22:44 88 20 97 08/05/17 22:04 82 22 97 08/05/17 22:01 78 20 96 08/05/17 21:52 97.8 F 89 22 145/96 99 General Appearance: no apparent distress, alert Eye Exam: PERRL/EOMI, eyes nml inspection Respiratory Exam: normal breath sounds, lungs clear, No respiratory distress Cardiovascular Exam: regular rate/rhythm, normal heart sounds, normal peripheral pulses Gastrointestinal/Abdomen Exam: soft, normal bowel sounds, No tenderness, No mass Extremity Exam: normal inspection, normal range of motion, pelvis stable Skin Exam: normal color, warm, dry, No rash Results - Labs Lab/Micro Results: Accuchecks Date 08/06/17 Time 06:17 Accucheck Value: 78 Accuchecks Date 08/06/17 Time 06:17 Accucheck Value: 78 - Other Procedures and Tests Respiratory Therapy 08/06/17 07:00 Respiratory Nebulizer Q4H Assessment/Plan (1) Asthma exacerbation Current Visit: Yes Status: Acute Code(s): J45.901 - UNSPECIFIED ASTHMA WITH (ACUTE) EXACERBATION Hospital Summary - Vitals & Intake/Output Vital Signs: Vital Signs Temperature 97.7 F 08/06/17 07:51 Pulse Rate 107 H 08/06/17 07:51 Respiratory Rate 18 08/06/17 07:51 Blood Pressure 129/76 08/06/17 07:51 O2 Sat by Pulse Oximetry 97 08/06/17 07:51 Intake & Output: Intake & Output 08/03/17 08/04/17 08/05/17 08/06/17 11:59 11:59 11:59 11:59 Intake Total 164 Balance 164 Weight 115.4 kg - Lab Result Diagrams: 08/05/17 22:01 08/05/17 22:00 Lab Results-Last 24 Hrs: Accuchecks Date 08/06/17 Time 06:17 Accucheck Value: 78 Micro Results-Entire Visit: Accuchecks Date 08/06/17 Time 06:17 Accucheck Value: 78 - Procedures and Test Procedures and Tests throughout Hospitalization: Therapy Orders & Screens 08/06/17 02:06 RT Screen per Nursing Assess ONCE Comment: Protocol Order Physician Instructions: Greater than 3 points order RT Admission Screen Reason For Exam: Triggered on Admission Diagnosis: PNEUMONIA Diagnosis: PNEUMONIA Pneumonia: Yes Home O2: No Asthma: No CHF: No Home CPAP/BIPAP: No Home Nebs/MDI: Yes Total Points: 8 08/06/17 07:00 Respiratory Nebulizer Q4H Comment: Diagnosis: PNEUMONIA - Discharge Disposition: Home, Self-Care Condition: Stable Prescriptions: New Prednisone 20 mg [Deltasone 20 mg] 20 mg PO UD #18 tablet Continue Sertraline HCl [Zoloft] 50 mg PO DAILY Lisinopril [Zestril] 10 mg PO DAILY Hydrochlorothiazide 12.5 mg PO HS Lactobacillus Acidophilus [Acidophilus Lactobacilli] 1 ea HS Aspirin 81 gm Chew [Baby Aspirin 81 mg Chew] 81 mg DAILY Pravastatin Sodium [Pravachol] 10 mg HS Omeprazole 20 MG [Prilosec 20 mg] 20 mg DAILY Sumatriptan Succinate [Imitrex] 50 mg PO Q4-6HPRN PRN PRN Reason: Pain Cetirizine HCl [Zyrtec] 10 mg PO DAILY Glimepiride 2 mg PO DAILY Metformin HCl Xr 500 mg [Glucophage XR 500 MG] 1,000 mg PO DAILY Additional Instructions: take neb treatments at home every 4 hours while awake, take prednisone as directed. return for worsening condition or new symptoms. Follow up with: LORE NICOLE MD [Primary Care Provider] - 1 Week
[2017-08-06] MEDS ORDERED: SUMATRIPTAN SUCCINATE 50 MG PO PRN (08:36)
--- NOTE | 2017-08-06 08:49 | XRAY ---
Indication: Cough. Short of breath. Comparison: March 07, 2017. Portable chest now demonstrates subtle right base infiltrate versus atelectasis. Remaining heart and lungs normal. Bony thorax intact again with minimal degenerative changes and osteopoikilosis.
[2017-08-06] MEDS ORDERED: hydroDIURIL 25 MG PO SCH (10:00)
[2017-08-06] MEDS ORDERED: ZOLOFT 50 MG TABLET PO SCH (10:00)
[2017-08-06] MEDS ORDERED: Protonix 40MG Tablet PO SCH (10:00)
[2017-08-06] MEDS ORDERED: Zestril 10 MG PO SCH (10:00)
[2017-08-06] MEDS ORDERED: Zithromax 500 MG/ 250 ML NaCl Premix 500 MG/250 ML IVPB IV SCH (10:00)
[2017-08-06] MEDS ORDERED: ECOTRIN 81 MG PO SCH (10:00)
[2017-08-06] MEDS ORDERED: BABY ASPIRIN 81 MG CHEW PO SCH (10:00)
[2017-08-06] MEDS ORDERED: CLARITIN 10 MG PO SCH (10:00)
[2017-08-06] MEDS ORDERED: NON-FORMULARY ITEM (Cetirizine Hcl [Zyrtec] 10 MG) PO SCH (10:00)
[2017-08-06 12:07] VITALS: BP 111/57; PULSE 124; O2SAT 94
[2017-08-06] MEDS ORDERED: NON-FORMULARY ITEM (Hydrochlorothiazide [Hydrochlorothiazide] 12.5 MG) PO SCH (22:00)
[2017-08-06] MEDS ORDERED: Acidophilus TABLET PO SCH (22:00)
[2017-08-06] MEDS ORDERED: ROCEPHIN 1 Gm-D5w 50 ml Bag** 1 G/50 ML IVPB IV SCH (22:00)
[2017-08-06] MEDS ORDERED: Zocor 10MG PO SCH (22:00)
[2017-08-06] MEDS ORDERED: LACTOBACILLUS ACIDOPHILUS PO SCH (22:00)
[2017-08-07] MEDS ORDERED: Glucophage XR 500 MG PO SCH (08:00)
== END 2017-08-06 12:35 | disposition home or self-care (01) ==
LOC: ED 21:46 → MED SURG 08-06 01:15
PROVIDERS: ADMIT Family Medicine; ATTEND Family Medicine
DX: E11.9 Type 2 diabetes mellitus without complications (principal); Z79.4 Long term (current) use of insulin; Z79.899 Other long term (current) drug therapy
CPT/HCPCS: 36000; 36415; 71045; 80048; 82962; 83735; 84484; 85025; 85379; 87040; 93005; 93041; 94150; 94640; 94760; 96360; 96374; 99284; 99285; G0378; 96361; 96365; J0456; J0696; J2930; A9270-GY

== ENCOUNTER 2017-09-10 12:49 | Emergency (ER) | payer OTHER ==
[2017-09-10] MEDS ORDERED: Sodium Chloride 0.9% 1000 ML 1,000 ML (13:33)
[2017-09-10] MEDS ORDERED: Zofran 4 MG/2 ML VIAL (13:33)
[2017-09-10] MEDS: Sodium Chloride 0.9% 1000 ML 1,000 ML IV (13:34)
[2017-09-10] MEDS: Zofran 4 MG/2 ML VIAL IV (13:36)
[2017-09-10 13:55] LABS: BASOPHIL % 0.2 % (0.0-0.4); Basophil (Absolute #) 0.02 (0-0.4); Eosinophil % 0.5 % (0.00-5.0); Eosinophil (Absolute #) 0.05 (0-0.5); Granulocyte Absolute (ANC) 7.49 (1.4-6.9); Granulocytes % 76.5 % (36.0-66.0); Hematocrit 41.7 % (35-47); Hemoglobin 13.6 gm/dl (12.0-16.0); Lymphocyte (Absolute #) 1.68 (1.0-4.6); Lymphocytes % 17.2 % (24.0-44.0); Mean Cell Volume 90.1 fl (78-100); Mean Corpuscular Hemoglobin 29.4 pg (26-32); Mean Corpuscular Hgb Concent. 32.6 g/dl (32-36); Mean Platelet Volume 11.8 fl (6-9.5); Monocyte (Absolute #) 0.55 (0.0-1.3); Monocytes % 5.6 % (0.0-12.0); Platelet Count 353 K/mm3 (150-450); Red Blood Count 4.63 M/mm3 (4.1-5.4); Red Cell Distribution Width 15.3 % (11.5-14.0); White Blood Count 9.8 K/mm3 (4.0-10.5)
[2017-09-10 14:03] LABS: ANION GAP 18.5 MEQ/L (5-15); BLOOD UREA NITROGEN 15 mg/dL (7-17); CHLORIDE 106 mmol/L (98-107); Calcium 9.7 mg/dL (8.4-10.2); Carbon Dioxide 23 mmol/L (22-30); Creatinine 1 0.62 mg/dL (0.52-1.04); EST GLOMERULAR FILTRATION RATE > 60.0 ML/MIN; Glucose 129 mg/dL (74-106); Potassium 3.9 mmol/L (3.5-5.1); SODIUM 144 mmol/L (137-145)
[2017-09-10] MEDS ORDERED: Phenergan 25 MG INJ (14:44)
[2017-09-10] MEDS ORDERED: ANTIVERT 25 MG (14:44)
[2017-09-10 14:49] LABS: ADD MANUAL DIFF? NO (NO)
[2017-09-10 14:50] LABS: ADD URINE CULTURE? NO (NO); Appearance CLEAR (CLEAR); Bilirubin NEGATIVE (NEGATIVE); Blood NEGATIVE Ery/ul (0-5); COMPLETE URINE MICROSCOPIC? NO; Collection Type CLEAN CATCH; Glucose NEGATIVE (NEGATIVE); Ketones NEGATIVE (NEGATIVE); Leukocyte Esterase NEGATIVE (NEGATIVE); Nitrite NEGATIVE (NEGATIVE); Protein,Urine Dip NEGATIVE (Negative); Specific Gravity 1.025 (1.005-1.025); Urobilinogen NORMAL mg/dL (0-1)
[2017-09-10] MEDS: ANTIVERT 25 MG PO (14:51)
[2017-09-10] MEDS: Phenergan 25 MG INJ IV (14:52)
== END 2017-09-10 15:59 | disposition home or self-care (01) ==
LOC: ED 12:49
CPT/HCPCS: 36000; 36415; 80048; 81002; 85025; 95992-GP; 96360; 96374; 96375; J2405; J2550

== ENCOUNTER 2018-01-26 22:30 | Emergency (ER) | payer OTHER ==
[2018-01-26] MEDS ORDERED: TORAdol 30 mg Injection IV ONE (22:48)
[2018-01-26] MEDS ORDERED: BENADRYL 50 MG/ML IV ONE (22:48)
[2018-01-26] MEDS ORDERED: Sodium Chloride 0.9% 1000 ML 1,000 ML IV STA (22:49)
[2018-01-26] MEDS ORDERED: Reglan 10 MG/2 ML IV ONE (22:50)
--- NOTE | 2018-01-26 22:55 | ERPHSYRPT ---
- History of Present Illness Time Seen by Provider: 01/26/18 22:43 Source: patient Exam Limitations: no limitations Patient Subjective Stated Complaint: pt states she has had migraine for 2 days with light and sound sensitivity. Triage Nursing Assessment: pt alert and oriented, answers questions approp. respirations nonlabored with lungs cta. pt ambulatory with steady gait noted. pt arrive to room with sunglasses on. pupils equal and reactive. skin pink warm and dry. bilat upper and lower ext strength equal and wnl Physician History: C/o "migraine" headaches x 2 days, nausea, denies vomiting, fever, chills, focal weakness, visual changes, other complaints. She has been suffering of migraines for years, usually has it every 2-3 months. She took Imitrex earlier without relief. Timing/Duration: day(s) (2) Quality: throbbing Head Pain Location: frontal Severity of Pain-Max: severe Severity of Pain-Current: moderate Recent Head Trauma: no recent headache/trauma Modifying Factors: Improves With: exposure to light Associated Symptoms: other (nausea) Previous symptoms: same symptoms as today Allergies/Adverse Reactions: No Known Drug Allergies Allergy (Verified 01/26/18 22:50) Home Medications: Lisinopril [Zestril] 10 mg PO DAILY 02/17/17 [History] Sertraline HCl [Zoloft] 50 mg PO DAILY 02/17/17 [History] hydroCHLOROthiazide [Hydrochlorothiazide] 12.5 mg PO HS 02/17/17 [History] Aspirin 81 gm Chew [Baby Aspirin 81 mg Chew] 81 mg DAILY 02/19/17 [History ] Lactobacillus Acidophilus [Acidophilus Lactobacilli] 1 ea PO HS 02/19/17 [ History] Omeprazole 20 MG [Prilosec 20 mg] 20 mg DAILY 02/19/17 [History] Pravastatin Sodium [Pravachol] 10 mg HS 02/19/17 [History] Sumatriptan Succinate [Imitrex] 50 mg PO Q4-6HPRN PRN 02/19/17 [History] Cetirizine HCl [Zyrtec] 10 mg PO DAILY 03/07/17 [History] Glimepiride 2 mg PO DAILY 07/24/17 [History] Metformin HCl Xr 500 mg [Glucophage XR 500 MG] 1,000 mg PO BID 08/06/17 [ History] Hx Tetanus, Diphtheria Vaccination/Date Given: Yes Hx Influenza Vaccination/Date Given: No Hx Pneumococcal Vaccination/Date Given: No - Review of Systems Constitutional: No Symptoms Abdominal/Gastrointestinal: Nausea Neurological: Headache All Other Systems: Reviewed and Negative - Past Medical History Pertinent Past Medical History: Yes Neurological History: Migraines ENT History: No Pertinent History Cardiac History: Hypertension Respiratory History: Bronchitis, Pneumonia Endocrine Medical History: Diabetes Type II Musculoskeletal History: No Pertinent History GI Medical History: GERD, Irritable Bowel, Polyps History: No Pertinent History Psycho-Social History: No Pertinent History Female Reproductive Disorders: No Pertinent History - Past Surgical History Past Surgical History: Yes Neuro Surgical History: No Pertinent History Cardiac: No Pertinent History Respiratory: No Pertinent History Gastrointestinal: Appendectomy, Cholecystectomy Genitourinary: No Pertinent History Musculoskeletal: No Pertinent History Female Surgical History: Hysterectomy - Social History Smoking Status: Never smoker Exposure to second hand smoke: No Drug Use: none Patient Lives Alone: No - Female History Hx Last Menstrual Period: hyster Hx Now: No - Nursing Vital Signs Nursing Vital Signs: Initial Vital Signs Temperature 97.7 F 01/26/18 22:39 Pulse Rate 72 01/26/18 22:39 Respiratory Rate 18 01/26/18 22:39 Blood Pressure 145/98 01/26/18 22:39 O2 Sat by Pulse Oximetry 98 01/26/18 22:39 Pain Scale Pain Intensity 8 - Physical Exam General Appearance: no apparent distress Eye Exam: PERRL/EOMI, eyes nml inspection Ears, Nose, Throat Exam: normal ENT inspection, pharynx normal, moist mucous membranes Neck Exam: normal inspection, non-tender, supple Respiratory Exam: normal breath sounds, lungs clear Cardiovascular Exam: regular rate/rhythm, normal heart sounds, normal peripheral pulses, No murmur Gastrointestinal/Abdominal Exam: soft, No tenderness Extremity Exam: normal inspection Mental Status Exam: alert, oriented x 3, 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 Exam: normal speech, PERRL Motor/Sensory Exam: no motor deficit DTR Exam: knee (R): 2+, knee (L): 2+ Skin Exam: normal color, warm, dry, No rash Lymphatic Exam: No adenopathy SpO2 Interpretation: normal SpO2: 98 Oxygen Delivery: Room Air - Course Nursing assessment & vital signs reviewed: Yes Ordered Tests: Active Orders 24 hr Category Date Time Status IV Insertion STAT Care 01/26/18 22:48 Active Oxygen-ED Only NASAL CANNULA 2 lpm Care 01/26/18 22:48 Active CBC W DIFF Stat Lab 01/26/18 23:20 Completed CMP Stat Lab 01/26/18 23:20 Completed CULTURE,URINE Stat Lab 01/26/18 23:20 Received Erythrocyte Sedimentation Rate Stat Lab 01/26/18 23:20 Completed PROTIME WITH INR Stat Lab 01/26/18 23:20 Completed UA W/RFX UR CULTURE Stat Lab 01/26/18 23:20 Completed Medication Summary Discontinued Medications Generic Name Dose Route Start Last Admin Trade Name Freq PRN Reason Stop Dose Admin Diphenhydramine HCl 25 mg 01/26/18 22:48 01/26/18 23:36 Benadryl 50 Mg/Ml IV 01/26/18 22:49 25 mg STAT ONE Administration Diphenhydramine HCl Confirm 01/26/18 23:03 Benadryl 50 Mg/Ml Administered 01/26/18 23:04 Dose 50 mg .ROUTE .STK-MED ONE Sodium Chloride 1,000 mls @ 999 mls/hr 01/26/18 22:49 01/26/18 23:37 Sodium Chloride 0.9% 1000 Ml IV 01/26/18 23:49 999 mls/hr .Q1H1M STA Administration Sodium Chloride Confirm 01/26/18 23:03 Sodium Chloride 0.9% 1000 Ml Administered 01/26/18 23:04 Dose 1,000 mls @ ud .ROUTE .STK-MED ONE Ketorolac Tromethamine 30 mg 01/26/18 22:48 01/26/18 23:36 Toradol 30 Mg Injection IV 01/26/18 22:49 30 mg STAT ONE Administration Ketorolac Tromethamine Confirm 01/26/18 23:03 Toradol 30 Mg Injection Administered 01/26/18 23:04 Dose 30 mg .ROUTE .STK-MED ONE Metoclopramide HCl 10 mg 01/26/18 22:50 01/26/18 23:37 Reglan 10 Mg/2 Ml IV 01/26/18 22:51 10 mg STAT ONE Administration Metoclopramide HCl Confirm 01/26/18 23:03 Reglan 10 Mg/2 Ml Administered 01/26/18 23:04 Dose 10 mg .ROUTE .STK-MED ONE Lab/Rad Data: Laboratory Result Diagrams 01/26/18 23:20 01/26/18 23:20 Laboratory Results 01/26/18 01/26/18 01/26/18 Range/Units 23:20 23:20 23:20 WBC (4.0-10.5) K/mm3 RBC (4.1-5.4) M/mm3 Hgb (12.0-16.0) gm/dl Hct (35-47) % MCV (78-100) fl MCH (26-32) pg MCHC (32-36) g/dl RDW (11.5-14.0) % Plt Count (150-450) K/mm3 MPV (6-9.5) fl Gran % (36.0-66.0) % Eos # (Auto) (0-0.5) Absolute Lymphs (auto) (1.0-4.6) Absolute Monos (auto) (0.0-1.3) Lymphocytes % (24.0-44.0) % Monocytes % (0.0-12.0) % Eosinophils % (0.00-5.0) % Basophils % (0.0-0.4) % Absolute Granulocytes (1.4-6.9) Basophils # (0-0.4) ESR (0-20) mm/hr PT 10.5 (9.95-12.35) SECONDS INR 0.90 (0.8-3.0) Sodium 143 (137-145) mmol/L Potassium 4.1 (3.5-5.1) mmol/L Chloride 110 H (98-107) mmol/L Carbon Dioxide 22 (22-30) mmol/L Anion Gap 15.9 H (5-15) MEQ/L BUN 17 (7-17) mg/dL Creatinine 1.03 (0.52-1.04) mg/dL Estimated GFR > 60.0 ML/MIN Glucose 101 (74-106) mg/dL Calcium 9.8 (8.4-10.2) mg/dL Total Bilirubin 0.30 (0.2-1.3) mg/dL AST 31 (14-36) U/L ALT 32 (0-35) U/L Alkaline Phosphatase 87 (38-126) U/L Serum Total Protein 6.8 (6.3-8.2) g/dL Albumin 4.1 (3.5-5.0) g/dL Urine Color YELLOW (YELLOW) Urine Appearance SLIGHTLY CLOUDY (CLEAR) Urine pH 5.0 (5-6) Ur Specific [place] 1.030 (1.005-1.025) Urine Protein 30 (Negative) Urine Ketones TRACE (NEGATIVE) Urine Blood NEGATIVE (0-5) Pato/ul Urine Nitrite NEGATIVE (NEGATIVE) Urine Bilirubin NEGATIVE (NEGATIVE) Urine Urobilinogen 2 (0-1) mg/dL Ur Leukocyte Esterase MODERATE (NEGATIVE) Urine WBC (Auto) 11-15 (0-5) /HPF Urine RBC (Auto) 0-2 (0-2) /HPF U Hyaline Cast (Auto) >50 (0-2) /LPF U Epithel Cells (Auto) RARE (FEW) /HPF Urine Bacteria (Auto) RARE (NEGATIVE) /HPF Urine Mucus (Auto) SLIGHT (NEGATIVE) /HPF Urine Culture Reflexed YES (NO) Urine Glucose NEGATIVE (NEGATIVE) mg/dL 01/26/18 Range/Units 23:20 WBC 9.7 (4.0-10.5) K/mm3 RBC 4.47 (4.1-5.4) M/mm3 Hgb 13.0 (12.0-16.0) gm/dl Hct 39.3 (35-47) % MCV 87.9 (78-100) fl MCH 29.1 (26-32) pg MCHC 33.1 (32-36) g/dl RDW 14.7 H (11.5-14.0) % Plt Count 272 (150-450) K/mm3 MPV 12.1 H (6-9.5) fl Gran % 57.9 (36.0-66.0) % Eos # (Auto) 0.13 (0-0.5) Absolute Lymphs (auto) 3.32 (1.0-4.6) Absolute Monos (auto) 0.60 (0.0-1.3) Lymphocytes % 34.4 (24.0-44.0) % Monocytes % 6.2 (0.0-12.0) % Eosinophils % 1.3 (0.00-5.0) % Basophils % 0.2 (0.0-0.4) % Absolute Granulocytes 5.59 (1.4-6.9) Basophils # 0.02 (0-0.4) ESR 18 (0-20) mm/hr PT (9.95-12.35) SECONDS INR (0.8-3.0) Sodium (137-145) mmol/L Potassium (3.5-5.1) mmol/L Chloride (98-107) mmol/L Carbon Dioxide (22-30) mmol/L Anion Gap (5-15) MEQ/L BUN (7-17) mg/dL Creatinine (0.52-1.04) mg/dL Estimated GFR ML/MIN Glucose (74-106) mg/dL Calcium (8.4-10.2) mg/dL Total Bilirubin (0.2-1.3) mg/dL AST (14-36) U/L ALT (0-35) U/L Alkaline Phosphatase (38-126) U/L Serum Total Protein (6.3-8.2) g/dL Albumin (3.5-5.0) g/dL Urine Color (YELLOW) Urine Appearance (CLEAR) Urine pH (5-6) Ur Specific [place] (1.005-1.025) Urine Protein (Negative) Urine Ketones (NEGATIVE) Urine Blood (0-5) Pato/ul Urine Nitrite (NEGATIVE) Urine Bilirubin (NEGATIVE) Urine Urobilinogen (0-1) mg/dL Ur Leukocyte Esterase (NEGATIVE) Urine WBC (Auto) (0-5) /HPF Urine RBC (Auto) (0-2) /HPF U Hyaline Cast (Auto) (0-2) /LPF U Epithel Cells (Auto) (FEW) /HPF Urine Bacteria (Auto) (NEGATIVE) /HPF Urine Mucus (Auto) (NEGATIVE) /HPF Urine Culture Reflexed (NO) Urine Glucose (NEGATIVE) mg/dL - Progress Progress: improved Air Movement: good Progress Note: 01/27/18 00:30 Pt states improved after iv fluids, Toradol., Benadryl and Reglan, afebrile, her pain is 2/10, alert and stable. I discussed our findings with her she was given 1x 500mg Keflex and discharged in stable condition to rest x 1-2 days, drink plenty of fluids, and follow up with her physician in 2-3 days, return if severe headaches, vomiting, lethargy or fever> 102 F. Blood Culture(s) Obtained: No Antibiotics given: Yes Counseled pt/family regarding: lab results, diagnosis, need for follow-up, rad results - Departure Time of Disposition: 00:33 Departure Disposition: Home Clinical Impression: UTI (urinary tract infection) Qualifiers: Urinary tract infection type: site unspecified Hematuria presence: without hematuria Qualified Code(s): N39.0 - Urinary tract infection, site not specified Headache Qualifiers: Headache type: unspecified Headache chronicity pattern: chronic headache Intractability: not intractable Qualified Code(s): R51 - Headache Condition: Stable Critical Care Time: No Referrals: LORE NICOLE MD [Primary Care Provider] - Instructions: Headache, Adult (DC), Urinary Tract Infection, Adult (DC) Additional Instructions: Rest x 1-2 days, drink plenty of fluids, and follow up with your physician in 2- 3 days, return if severe pain, vomiting, fever> 102 F or lethargy ! Forms: Work/School Release Form Prescriptions: Cephalexin Mh 500 mg [Keflex 500 mg] 500 mg PO Q6H 7 Days #28 capsule
[2018-01-26] MEDS ORDERED: Reglan 10 MG/2 ML ONE (23:03)
[2018-01-26] MEDS ORDERED: BENADRYL 50 MG/ML ONE (23:03)
[2018-01-26] MEDS ORDERED: TORAdol 30 mg Injection ONE (23:03)
[2018-01-26] MEDS ORDERED: Sodium Chloride 0.9% 1000 ML 1,000 ML ONE (23:03)
[2018-01-26 23:30] LABS: BASOPHIL % 0.2 % (0.0-0.4); Basophil (Absolute #) 0.02 (0-0.4); Eosinophil % 1.3 % (0.00-5.0); Eosinophil (Absolute #) 0.13 (0-0.5); Granulocyte Absolute (ANC) 5.59 (1.4-6.9); Granulocytes % 57.9 % (36.0-66.0); Hematocrit 39.3 % (35-47); Lymphocyte (Absolute #) 3.32 (1.0-4.6); Lymphocytes % 34.4 % (24.0-44.0); Mean Cell Volume 87.9 fl (78-100); Mean Corpuscular Hemoglobin 29.1 pg (26-32); Mean Corpuscular Hgb Concent. 33.1 g/dl (32-36); Mean Platelet Volume 12.1 fl (6-9.5); Monocytes % 6.2 % (0.0-12.0); Platelet Count 272 K/mm3 (150-450); Red Blood Count 4.47 M/mm3 (4.1-5.4); Red Cell Distribution Width 14.7 % (11.5-14.0); White Blood Count 9.7 K/mm3 (4.0-10.5)
[2018-01-26 23:38] LABS: INR 0.9 (0.8-3.0)
[2018-01-26 23:39] LABS: Appearance SLIGHTLY CLOUDY (CLEAR); Bilirubin NEGATIVE (NEGATIVE); Blood NEGATIVE Ery/ul (0-5); Glucose NEGATIVE (NEGATIVE); Ketones TRACE (NEGATIVE); Leukocyte Esterase MODERATE (NEGATIVE); Nitrite NEGATIVE (NEGATIVE); Protein,Urine Dip 30 (Negative); Urobilinogen 2 mg/dL (0-1)
[2018-01-26 23:43] LABS: ALBUMIN 4.1 g/dL (3.5-5.0); ALKALINE PHOSPHATASE 87 U/L (38-126); ANION GAP 15.9 MEQ/L (5-15); BLOOD UREA NITROGEN 17 mg/dL (7-17); CHLORIDE 110 mmol/L (98-107); Calcium 9.8 mg/dL (8.4-10.2); Carbon Dioxide 22 mmol/L (22-30); Creatinine 1 1.03 mg/dL (0.52-1.04); Glucose 101 mg/dL (74-106); Potassium 4.1 mmol/L (3.5-5.1); SGOT/AST 31 U/L (14-36); SGPT/ALT 32 U/L (0-35); SODIUM 143 mmol/L (137-145); Total Protein 6.8 g/dL (6.3-8.2)
[2018-01-26 23:45] LABS: Erythrocyte Sedimentation Rate 18 mm/hr (0-20)
[2018-01-27] MEDS ORDERED: KEFLEX 500 MG PO ONE (00:31)
[2018-01-27] MEDS ORDERED: KEFLEX 500 MG ONE (00:35)
[2018-01-27 00:59] VITALS: BP 130/77; PULSE 69; O2SAT 99
[2018-01-27 05:13] LABS: Slide Review 1 YES
== END 2018-01-27 01:07 | disposition home or self-care (01) ==
LOC: ED 22:30
DX: R51 Headache (principal); N39.0 Urinary tract infection, site not specified; Z79.899 Other long term (current) drug therapy
CPT/HCPCS: 36000; 36415; 80053; 81001; 85025; 85610; 85652; 87086; 96360; 96374; 96375; 99284; J1200; J1885; A9270-GY